=== PATIENT | female | born 1965 | race Caucasian/White ===

== ENCOUNTER 2022-12-29 10:13 | Emergency (ER) | payer BC, SELFPAY ==
[2022-12-29 10:19] VITALS: BP 122/72; PULSE 85; RESP 20; O2SAT 94; BMI 32.9
--- NOTE | 2022-12-29 10:42 | CRLHL7_ITS ---
For Patients: As a result of the Century Cures Act, medical imaging exams and procedure reports are released immediately into your electronic medical record. You may view this report before your referring provider. If you have questions, please contact your health care provider. INDICATION: Headache TECHNIQUE: CT head without contrast. COMPARISON: None. FINDINGS: CSF spaces: Parasagittal calcified lesion which is dural-based near the vertex measuring 13 millimeters (series 7, image 33). No significant mass effect. Brain parenchyma: The babin-white differentiation is normal. No sign of mass, hemorrhage, or midline shift. Skull base and calvarium: Mucosal thickening right maxillary sinus. The visualized orbits are grossly unremarkable. No skull fractures. IMPRESSION: 1. No intracranial bleed or mass effect. 2. Parasagittal extra-axial lesion with calcification measuring 13 millimeters, likely a meningioma. Please note that all CT scans at this facility use dose modulation, iterative reconstruction, and/or weight-based dosing when appropriate to reduce radiation dose to as low as reasonably achievable. Dictated by Demetris Dixon MD @ 12/29/2022 11:12:00 AM (Electronically Signed)
--- NOTE | 2022-12-29 10:45 | ED_ITS ---
HPI - General Adult General Time Seen by Provider: 10:45 Date Seen: 12/29/22 Chief complaint: Headache/Migraine Stated complaint: Headache, Nausea Time Seen by Provider: 12/29/22 10:27 Source: patient Mode of arrival: ambulatory Limitations: no limitations History of Present Illness HPI narrative: Patient is a 57 year white female who is pleasant and describing a headache. She brought she has a history of bitemporal type tension headaches. She has been told she has migraines in the past. She reports his headaches been for a couple of days, slow and insidious onset, seems similar but a little bit worse than normal. No nuchal rigidity, no fevers chills cough. Patient has a history of methamphetamine use in the past, denies using that now. She denies nuchal rigidity denies thunderclap headache, denies neurologic complaint to me. Normal strength and sensation are arms and legs. She reports she is drinking adequate fluid thanks Related Data Allergies Allergy/AdvReac Type Severity Reaction Status Date / Time Penicillins Allergy Verified 12/29/22 10:18 Review of Systems Status of ROS: Reports: 6 or more systems reviewed and unremarkable except as noted in History and below [facility] Social History Smoking Status: Current every day smoker What tobacco products do you use: cigarettes Smoking packs per day: 0.5 Smoking cigarettes per day: 10.0 Years smoked: 25 Smoking pack-years: 12.50 Second hand tobacco smoke exposure: Yes How often do you have a drink containing alcohol: monthly or less How many standard drinks containing alcohol do you have on a typical day: 1 or 2 How often do you have six or more drinks on one occasion: Never AUDIT-C Alcohol total score: 1 Non-prescribed substance use: denies use service: No Exam Narrative: Exam Narrative: Objective: Vital signs are unremarkable, the patient is alert or x3, no cyanosis talks in even unlabored sentences, does not appear in marked distress HEENT shows clear mouth well-hydrated, neck supple, chest clear, heart rhythm regular without murmur Abdomen benign soft Extremities are no edema Neurologic nonfocal upper extremities normal strength sensation Const: Vital Signs, click to edit/add: Vital Signs - 24 hr 12/29/22 10:19 Pulse Rate [Pulse Oximeter] 85 Respiratory Rate 20 Blood Pressure [Ri ght Upper Arm] 122/72 Pulse Oximetry 94 Oxygen Delivery Me thod Room Air Course Vital Signs Vital signs: Initial Vital Signs Temperature Source Temporal Artery Scan 12/29/22 10:19 Pulse Rate 85 12/29/22 10:19 Pulse Rhythm 12/29/22 10:19 Respiratory Rate 20 12/29/22 10:19 Blood Pressure 122/72 12/29/22 10:19 Blood Pressure Mean 88 12/29/22 10:19 Blood Pressure Position Supine 12/29/22 10:19 Pulse Oximetry 94 12/29/22 10:19 Oxygen Delivery Method 12/29/22 10:19 Vital Signs Pulse Rate 85 12/29/22 10:19 Respiratory Rate 20 12/29/22 10:19 Blood Pressure 122/72 12/29/22 10:19 Pulse Oximetry 94 12/29/22 10:19 Oxygen Delivery Method 12/29/22 10:19 Pulse Rate 85 12/29/22 10:19 Respiratory Rate 20 12/29/22 10:19 Blood Pressure 122/72 12/29/22 10:19 Pulse Oximetry 94 12/29/22 10:19 Oxygen Delivery Method 12/29/22 10:19 Medical Decision Making MDM Narrative Medical decision making narrative: 57 year white female with a headache history of headaches. At this point I think given she reports that is slightly worse I think I would get a CT of her head just because she has had a history of drug use in the past and I do not know she has fallen or had other injury I think it should be excluded. Will give her IV medications in the form of Toradol, Reglan, Benadryl. IV fluid. Disposition pending her CT results. Will also check a heme 4 and basic 7. Addendum: The patient has a negative CT scan of her head with exception of a 13 mm likely meningioma that could be followed up as an outpatient. Her CBC looks unremarkable, her pain is improved, rest fluids ox light activity, recheck with regular doctor within the next couple of days would be appropriate. Lab Data Labs: Lab Results 12/29/22 12/29/22 Range/Units 11:16 11:16 WBC 7.40 (4.50-11.00) K/uL RBC 4.60 (4.00-5.20) m/uL Hgb 13.6 (12.0-16.0) gm/dL Hct 42.0 (33.0-51.0) % MCV 91 (80-100) fL MCH 30 (26-34) pg MCHC 32 (32-36) gm/dL RDW Coeff of Kelsey 12.4 (11.5-15.5) % Plt Count 335 (140-440) K/uL Neut % (Auto) 47.1 (42.0-72.0) % Lymph % (Auto) 35.3 (20-44) % [place] % (Auto) 6.2 (0.0-11.0) % Eos % (Auto) 10.4 H (0.0-7.0) % Baso % (Auto) 0.9 (0.0-3.0) % Neut # (Auto) 3.48 (1.7-7.0) K/uL Lymph # (Auto) 2.61 (0.90-2.90) K/uL [place] # (Auto) 0.50 (0.00-0.90) K/UL Eos # (Auto) 0.80 H (0.00-0.50) K/uL Baso # (Auto) 0.07 (0.00-0.30) K/uL Sodium 139 (135-149) mmol/L Potassium 3.7 (3.6-5.1) mmol/L Chloride 109 (96-114) mmol/L Carbon Dioxide 25 (20-32) mmol/L BUN 15 (7-30) mg/dL Creatinine 0.7 (0.5-1.5) mg/dL Estimated Creat Clear 70.98 Estimated GFR 101 ml/min Glucose 106 (60-115) mg/dL Calcium 8.6 (8.4-10.6) mg/dL Discharge Plan Discharge Clinical Impression: Headache Patient Disposition: Home w/ Parent or Adult Condition: Improved Additional Instructions: Rest, light activity, need to recheck your CT scan result with your primary care doctor. It appears there was some calcium there that is likely benign finding but needs either an MRI or other follow-up. Rest, light activity today as mention drink lots of fluids, continue home medications. That you will need a ride home today, the medicines were given can make you sleepy, sleep is a good treatment for migrainous type headache. And would encourage you to sleep today, return to the ED as needed Activity Level: Light activity Discharge Diet: Regular Follow Up/Referrals: Machelle Villarreal MD [Primary Care Provider] - Stand Alone Forms: [employer] Info Instructions
[2022-12-29] MEDS: diphenhydrAMINE 50 MG/ML inj 25 MG IVP (11:18)
[2022-12-29] MEDS: KETOROLAC 30 MG/ML inj IVP (11:18)
[2022-12-29] MEDS: 0.9 % SODIUM CHLORIDE 1000 ml 1,000 ML 6000 ML IV (11:19)
[2022-12-29 11:27] LABS: Basophils Absolute Auto 0.07 K/uL (0.00-0.30); Basophils Percent Auto 0.9 % (0.0-3.0); Eosinophils Percent Auto 10.4 % (0.0-7.0); Hemoglobin* 13.6 gm/dL (12.0-16.0); Immature Granulocytes Abs Auto 0.01 K/uL (0.00-0.30); Immature Granulocytes Pct Auto 0.1 %; Lymphocytes Absolute Auto 2.61 K/uL (0.90-2.90); Lymphocytes Percent Auto 35.3 % (20-44); Mean Corpuscular HGB Conc 32 gm/dL (32-36); Mean Corpuscular Hemoglobin 30 pg (26-34); Mean Corpuscular Volume 91 fL (80-100); Monocytes Percent Auto 6.2 % (0.0-11.0); Neutrophils Absolute Auto 3.48 K/uL (1.7-7.0); Neutrophils Percent Auto 47.1 % (42.0-72.0); Platelet Count* 335 K/uL (140-440); RDW Coefficient of Variation % 12.4 % (11.5-15.5)
[2022-12-29 11:29] LABS: Slide Review Reflex No
[2022-12-29 11:40] LABS: Chloride* 109 mmol/L (96-114); Sodium* 139 mmol/L (135-149)
[2022-12-29 11:41] LABS: Potassium* 3.7 mmol/L (3.6-5.1)
[2022-12-29 11:43] LABS: Carbon Dioxide* 25 mmol/L (20-32); Creatinine* 0.7 mg/dL (0.5-1.5); Est. Creatinine Clearance* 70.98; Estimated Glomerular Filt Rate 101 ml/min
[2022-12-29 11:44] LABS: Blood Urea Nitrogen* 15 mg/dL (7-30); Calcium* 8.6 mg/dL (8.4-10.6); Glucose* 106 mg/dL (60-115)
[2022-12-29] MEDS: METOCLOPRAMIDE HCL 10 MG in 0.9 % SODIUM CHLORIDE 100 ml 100 ML 306 MG IV (11:46)
--- NOTE | 2022-12-29 12:43 | ED.NURSE ---
CT images pushed to [facility] where patient sees a neurologist.
== END 2022-12-29 13:07 | disposition home or self-care (01) ==
PROVIDERS: Emergency Provider Family Medicine; PCP Family Medicine
DX: R51.9 Headache, unspecified (principal)
CPT/HCPCS: 36415; 70450; 80048; 85025; 96374; 96375; 99284; J1200; J1885; J2765; J7030

== ENCOUNTER 2023-03-04 17:44 | Emergency (ER) | payer BC, SELFPAY ==
[2023-03-04 17:50] VITALS: BP 155/89; PULSE 102; RESP 20; TEMP 35.9; O2SAT 96; BMI 32.9
--- NOTE | 2023-03-04 18:21 | CRLHL7_ITS ---
For Patients: As a result of the Century Cures Act, medical imaging exams and procedure reports are released immediately into your electronic medical record. You may view this report before your referring provider. If you have questions, please contact your health care provider. INDICATION: LUQ PAIN CT ABDOMEN AND PELVIS WITH CONTRAST TECHNIQUE: Multidetector CT imaging was performed through the abdomen and pelvis following intravenous contrast administration using 88 mL Isovue 370. Coronal and sagittal reconstructions were generated. COMPARISON: None. FINDINGS: Lower chest: Lung bases are clear aside from a noncalcified 5 millimeter nodule in the left lower lobe on image 13 of series 3; consider follow-up as per Fleischner Society guidelines. Liver: Within normal limits. Gallbladder and bile ducts: Partially contracted gallbladder. No gallbladder wall thickening or calcified gallstones. No biliary dilation identified. Pancreas: Unremarkable. Spleen: Normal. Adrenals: No nodules or masses. Kidneys, ureters, and urinary bladder: No renal masses or hydronephrosis. No bladder mass or definite wall thickening. Gastrointestinal tract: Normal caliber small bowel without wall thickening or obstruction. The appendix is normal. Multiple colon diverticula, most numerous in the distal descending colon and sigmoid, without evidence of diverticulitis. Vascular structures: Normal caliber abdominal aorta with mild atherosclerotic calcifications. Peritoneum: No free air, abscess, or significant free fluid. Lymph nodes: No pathologically enlarged nodes identified. Reproductive organs: No pelvic masses. Bones: Moderate degenerative changes in the lower lumbar facet joints. Grade 1 spondylolisthesis at L5-S1. IMPRESSION: 1. No acute abnormality identified. No cause for the patient`s symptoms is demonstrated. 2. Nonacute findings as detailed above. DANE BRIDGES MD [employer] Dictated by Agus Bridges MD @ 03/04/2023 6:59:52 PM Please note that all CT scans at this facility use dose modulation, iterative reconstruction, and/or weight-based dosing when appropriate to reduce radiation dose to as low as reasonably achievable. Dictated by: Agus Bridges MD @ 03/04/2023 19:01:44 (Electronically Signed)
--- NOTE | 2023-03-04 18:22 | ED_ITS ---
HPI - Abdominal Pain General Chief Complaint: Abdominal Pain Stated Complaint: Left side pain/hip pain Time Seen by Provider: 03/04/23 17:51 History of Present Illness HPI narrative: This 58-year-old female comes in reporting left upper quadrant abdominal pain that is been present for the past 5 days. She states that this pain is keeping her awake at night. She states that it is a constant pain. The pain is worse with certain movements. She denies having symptoms of dysuria. She has not had any fevers. She has had a couple episodes of diarrhea but no blood in the toilet. She does not report any personal history of kidney stone. She denies having any left flank pain or pain into the groin. Related Data Home Medications Medication Instructions Recorded Confirmed buspirone 5 mg tablet 5 mg PO BID 03/04/23 03/04/23 Previous Rx's Medication Instructions Recorded ketorolac 10 mg tablet 10 mg PO Q8H 5 days #15 tabs 03/04/23 Allergies Allergy/AdvReac Type Severity Reaction Status Date / Time Penicillins Allergy Verified 12/29/22 10:18 Review of Systems Status of ROS Reports: 10 or more systems reviewed and unremarkable except as noted in History and below Narrative Constitutional: No fevers, no weight gain or loss. Eyes: No discharge. No vision changes. HENT: No congestion, no sore throat, no ear pain. Cardiovascular: No chest pain, no palpitations. Respiratory: No shortness of breath, no wheezes, no cough. Gastrointestinal: Left upper quadrant abdominal pain as described above. Genitourinary: No dysuria, no hematuria. Musculoskeletal: Normal range of motion. Skin: No rashes, no pruritis. Neurological: No dizziness, weakness, sensory change, speech change. Endo/Heme/Allergies: No bruising or bleeding. No polydipsia. Pysch: no suicidality, no anxiety, no insomnia. All other systems reviewed and are negative. [facility] Social History Smoking Status: Current every day smoker What tobacco products do you use: cigarettes Smoking packs per day: 0.5 Smoking cigarettes per day: 10.0 Years smoked: 25 Smoking pack-years: 12.50 Second hand tobacco smoke exposure: Yes How often do you have a drink containing alcohol: never How many standard drinks containing alcohol do you have on a typical day: 1 or 2 How often do you have six or more drinks on one occasion: Never AUDIT-C Alcohol total score: 0 Non-prescribed substance use: denies use service: No Exam Narrative: Exam Narrative: Constitutional: Well-developed, well-nourished, no acute distress. HEENT: Normocephalic, atraumatic. Neck: Normal range of motion. Nontender. Supple. Heart: Regular. No murmurs. Normal rate. Intact distal pulses. Lungs: Clear to auscultation. No chest discomfort. No wheezes, rhonchi, or rales. Abdomen: Normal bowel sounds. Tenderness in left upper quadrant. No obvious rebound tenderness. No tenderness when percussing over the left flank region. Genitalia: Deferred. Back: No midline tenderness. Normal range of motion. Extremities: Normal range of motion. No injury. Skin: Intact. No rash. Warm. No erythema or pallor. Neurologic: No altered sensation. No weakness. Alert and oriented. Psychiatric: No suicidality. No anxiety or depression. No insomnia. Nursing notes and vitals signs are reviewed. Const: Vital Signs, click to edit/add: Vital Signs - 24 hr 03/04/23 17:50 Temperature 96.6 F L Pulse Rate [Pulse Oximeter] 102 H Respiratory Rate 20 Blood Pressure [Ri ght Upper Arm] 155/89 H Pulse Oximetry 96 Oxygen Delivery Me thod Room Air Course Vital Signs Vital signs: Initial Vital Signs Temperature 96.6 F L 03/04/23 17:50 Temperature Source Temporal Artery Scan 03/04/23 17:50 Pulse Rate 102 H 03/04/23 17:50 Respiratory Rate 20 03/04/23 17:50 Blood Pressure 155/89 H 03/04/23 17:50 Blood Pressure Mean 111 03/04/23 17:50 Blood Pressure Position Sitting 03/04/23 17:50 Pulse Oximetry 96 03/04/23 17:50 Oxygen Delivery Method Room Air 03/04/23 17:50 Vital Signs Temperature 96.6 F L 03/04/23 17:50 Pulse Rate 102 H 03/04/23 17:50 Respiratory Rate 20 03/04/23 17:50 Blood Pressure 155/89 H 03/04/23 17:50 Pulse Oximetry 96 03/04/23 17:50 Oxygen Delivery Method Room Air 03/04/23 17:50 Temperature 96.6 F L 03/04/23 17:50 Pulse Rate 102 H 03/04/23 17:50 Respiratory Rate 20 03/04/23 17:50 Blood Pressure 155/89 H 03/04/23 17:50 Pulse Oximetry 96 03/04/23 17:50 Oxygen Delivery Method Room Air 03/04/23 17:50 MDM - Abdominal Pain MDM Narrative Medical decision making narrative: This patient comes in reporting pain in the left upper quadrant for the past 5 days. An IV was established where she received 30 mg of Toradol toward the end of her visit. Lab results returned with normal findings. Additionally CT imaging of the abdomen with contrast shows no findings to explain her pain. There is some diverticulosis but no diverticulitis. The patient was reassured with these findings and is okay to return home. She did receive a prescription for Toradol. Lab Data Labs: Lab Results 03/04/23 Range/Units 18:35 WBC 7.88 (4.50-11.00) K/uL RBC 4.74 (4.00-5.20) m/uL Hgb 13.8 (12.0-16.0) gm/dL Hct 42.9 (33.0-51.0) % MCV 91 (80-100) fL MCH 29 (26-34) pg MCHC 32 (32-36) gm/dL RDW Coeff of [place]sey 12.9 (11.5-15.5) % Plt Count 361 (140-440) K/uL Neut % (Auto) 58.1 (42.0-72.0) % Lymph % (Auto) 27.0 (20-44) % [place] % (Auto) 6.2 (0.0-11.0) % Eos % (Auto) 8.0 H (0.0-7.0) % Baso % (Auto) 0.6 (0.0-3.0) % Neut # (Auto) 4.57 (1.7-7.0) K/uL Lymph # (Auto) 2.13 (0.90-2.90) K/uL [place] # (Auto) 0.50 (0.00-0.90) K/UL Eos # (Auto) 0.60 H (0.00-0.50) K/uL Baso # (Auto) 0.05 (0.00-0.30) K/uL Sodium 138 (135-149) mmol/L Potassium 4.5 (3.6-5.1) mmol/L Chloride 103 (96-114) mmol/L Carbon Dioxide 32 (20-32) mmol/L BUN 17 (7-30) mg/dL Creatinine 0.7 (0.5-1.5) mg/dL Estimated Creat Clear 70.13 Estimated GFR 101 ml/min Glucose 106 (60-115) mg/dL Calcium 9.2 (8.4-10.6) mg/dL Total Bilirubin 0.2 (0.1-1.5) mg/dL Direct Bilirubin 0.2 (0.0-0.5) mg/dL AST 22 (12-35) U/L ALT 23 (4-35) U/L Alkaline Phosphatase 126 (40-150) U/L Total Protein 7.2 (6.0-8.3) g/dL Albumin 4.1 (3.3-5.0) g/dL Lipase 106 (23-300) U/L Imaging Data CT scan - abdomen: Radiologist's impression: 1. No acute abnormality identified. No cause for the patient`s symptoms is demonstrated. 2. Nonacute findings as detailed above. Discharge Plan Discharge Clinical Impression: Abdominal pain Patient Disposition: Home, Self-Care Condition: Stable Additional Instructions: Take medication as needed and indicated. Follow up with MD or return if worsening. Prescriptions: New ketorolac 10 mg tablet 10 mg PO Q8H 5 Days Qty: 15 0RF No Action buspirone 5 mg tablet 5 mg PO BID Follow Up/Referrals: Machelle Villarreal MD [Primary Care Provider] - Stand Alone Forms: [employer] Info Instructions
[2023-03-04 18:43] LABS: Basophils Absolute Auto 0.05 K/uL (0.00-0.30); Basophils Percent Auto 0.6 % (0.0-3.0); Hematocrit 42.9 % (33.0-51.0); Hemoglobin* 13.8 gm/dL (12.0-16.0); Immature Granulocytes Abs Auto 0.01 K/uL (0.00-0.30); Immature Granulocytes Pct Auto 0.1 %; Lymphocytes Absolute Auto 2.13 K/uL (0.90-2.90); Mean Corpuscular HGB Conc 32 gm/dL (32-36); Mean Corpuscular Hemoglobin 29 pg (26-34); Mean Corpuscular Volume 91 fL (80-100); Monocytes Percent Auto 6.2 % (0.0-11.0); Neutrophils Absolute Auto 4.57 K/uL (1.7-7.0); Neutrophils Percent Auto 58.1 % (42.0-72.0); Platelet Count* 361 K/uL (140-440); RDW Coefficient of Variation % 12.9 % (11.5-15.5); Red Blood Count 4.74 m/uL (4.00-5.20); White Blood Count* 7.88 K/uL (4.50-11.00)
[2023-03-04 18:45] LABS: Slide Review Reflex No
[2023-03-04 18:55] LABS: Albumin* 4.1 g/dL (3.3-5.0)
[2023-03-04 18:56] LABS: Chloride* 103 mmol/L (96-114); Potassium* 4.5 mmol/L (3.6-5.1); Sodium* 138 mmol/L (135-149)
[2023-03-04 18:58] LABS: Bilirubin Direct* 0.2 mg/dL (0.0-0.5); Bilirubin Total* 0.2 mg/dL (0.1-1.5); Carbon Dioxide* 32 mmol/L (20-32); Creatinine* 0.7 mg/dL (0.5-1.5); Est. Creatinine Clearance* 70.13; Estimated Glomerular Filt Rate 101 ml/min; Total Protein* 7.2 g/dL (6.0-8.3)
[2023-03-04 18:59] LABS: Alanine Aminotransferase* 23 U/L (4-35); Alkaline Phosphatase* 126 U/L (40-150); Aspartate Amino Transferase* 22 U/L (12-35); Blood Urea Nitrogen* 17 mg/dL (7-30); Calcium* 9.2 mg/dL (8.4-10.6); Glucose* 106 mg/dL (60-115); Lipase* 106 U/L (23-300)
[2023-03-04 19:00] VITALS: BP 139/107; PULSE 85; RESP 16; O2SAT 97
[2023-03-04] MEDS: KETOROLAC 30 MG/ML inj IVP (19:43)
== END 2023-03-04 19:51 | disposition home or self-care (01) ==
PROVIDERS: Emergency Provider Emergency Medicine Emergency Medical Services; PCP Family Medicine
DX: R10.9 Unspecified abdominal pain (principal)
CPT/HCPCS: 36415; 74177; 80048; 80076; 83690; 85025; 96374; 99284; J1885; Q9967

== ENCOUNTER 2023-05-23 16:50 | Emergency (ER) | payer BC, SELFPAY ==
[2023-05-23] VITALS (9 sets, daily range): BP systolic 121–132; BP diastolic 74–85; PULSE 68–90; RESP 20; TEMP 37.1; O2SAT 93–97; BMI 32.9
--- NOTE | 2023-05-23 17:39 | ED.GENADULT ---
HPI - General Adult General Date Seen: 05/23/23 Chief complaint: Unspecified Complaint, Adult Stated complaint: Dehydration Time Seen by Provider: 05/23/23 17:19 Source: patient Mode of arrival: ambulatory Limitations: no limitations History of Present Illness HPI narrative: Patient is a 58-year-old woman here for evaluation of diarrhea for the past week. Stools are nonbloody, watery. She has also had headaches and fatigue. She has not had any nausea or vomiting. She denies recent antibiotics, non city water, suspect food. She called to make an appointment in the clinic and they told her to come to the ER for possible dehydration. No ill contacts. No abdominal pain. No fevers or chills. No urinary symptoms. Related Data Home Medications Medication Instructions Recorded Confirmed buspirone 5 mg tablet 5 mg PO BID 03/04/23 03/04/23 Previous Rx's Medication Instructions Recorded ketorolac 10 mg tablet 10 mg PO Q8H 5 days #15 tabs 03/04/23 Allergies Allergy/AdvReac Type Severity Reaction Status Date / Time cephalexin [From Keflex] AdvReac Severe Rash Verified 05/23/23 17:10 Penicillins AdvReac Severe Rash Verified 05/23/23 17:10 Review of Systems Status of ROS: Reports: 10 or more systems reviewed and unremarkable except as noted in History and below [facility] Social History Smoking Status: Current every day smoker What tobacco products do you use: cigarettes Smoking packs per day: 0.5 Smoking cigarettes per day: 10.0 Years smoked: 25 Smoking pack-years: 12.50 Second hand tobacco smoke exposure: Yes How often do you have a drink containing alcohol: never How many standard drinks containing alcohol do you have on a typical day: 1 or 2 How often do you have six or more drinks on one occasion: Never AUDIT-C Alcohol total score: 0 Non-prescribed substance use: denies use service: No Exam Narrative: Exam Narrative: Vital signs as noted above. In general, an alert, well-appearing patient. Head: Normocephalic, atraumatic. Eyes: Pupils are equal reactive. Extraocular movements are full. Conjunctivae are normal. ENT: Mucous membranes are moist. Throat is normal. Neck: Supple without lymphadenopathy. Heart: Regular rate and rhythm. No murmur or rub. Lungs: Clear bilaterally. No increased work of breathing, crackles or wheezes. Abdomen: Soft and nontender. No organomegaly. Extremities: Well perfused. No edema. No calf tenderness. Pulses intact. Neurologic: Patient is alert and oriented to person and place. Speech is fluent. Face is symmetric. Moves all extremities equally. Affect: Normal. Skin: Warm and dry. Well perfused. Const: Vital Signs, click to edit/add: Vital Signs - 24 hr 05/23/23 17:08 05/23/23 18:02 05/23/23 18:03 Temperature 98.8 F Pulse Rate 70 72 Pulse Rate [Right Pulse Oximeter] 90 Respiratory Rate 20 Blood Pressure 121/74 Blood Pressure [Le ft Upper Arm] 132/85 Pulse Oximetry 97 97 95 Oxygen Delivery Me thod Room Air 05/23/23 18:15 05/23/23 18:30 05/23/23 18:45 Temperature Pulse Rate 69 74 76 Pulse Rate [Right Pulse Oximeter] Respiratory Rate Blood Pressure Blood Pressure [Le ft Upper Arm] Pulse Oximetry 94 93 93 Oxygen Delivery Me thod 05/23/23 19:00 05/23/23 19:02 05/23/23 19:15 Temperature Pulse Rate 68 74 80 Pulse Rate [Right Pulse Oximeter] Respiratory Rate Blood Pressure 124/81 Blood Pressure [Le ft Upper Arm] Pulse Oximetry 95 94 97 Oxygen Delivery Me thod Course Course Hospital Course: We placed an IV here, gave a L of normal saline. Labs including a CBC, metabolic panel, LFTs, lactate, CRP are all entirely normal. Urinalysis is negative, no ketones, no red or white cells. Patient presents with nonspecific diarrhea without evidence of dysentery, colitis, or red flag symptoms. She did not have any diarrhea while here. She is feeling better, she would like to go as she says her daughter has limited time to bring her home. Would recommend a trial of Imodium given that she does not have any significant abdominal pain, fever, bloody stools etcetera. If not improving over the next few days to week, primary care follow-up in stool studies could be considered. I had ordered a C diff that she did not have a bowel movement while here. Return at any time for new symptoms such as significant abdominal pain, bloody stools, fever etcetera. Vital Signs Vital signs: Initial Vital Signs Temperature 98.8 F 05/23/23 17:08 Temperature Source Temporal Artery Scan 05/23/23 17:08 Pulse Rate 90 05/23/23 17:08 Pulse Rhythm Regular 05/23/23 17:08 Pulse Strength 3+ Normal 05/23/23 17:08 Respiratory Rate 20 05/23/23 17:08 Blood Pressure 132/85 05/23/23 17:08 Blood Pressure Mean 100 05/23/23 17:08 Blood Pressure Position Sitting 05/23/23 17:08 Pulse Oximetry 97 05/23/23 17:08 Oxygen Delivery Method Room Air 05/23/23 17:08 Vital Signs Temperature 98.8 F 05/23/23 17:08 Pulse Rate 90 05/23/23 17:08 Respiratory Rate 20 05/23/23 17:08 Blood Pressure 132/85 05/23/23 17:08 Pulse Oximetry 97 05/23/23 17:08 Oxygen Delivery Method Room Air 05/23/23 17:08 Temperature 98.8 F 05/23/23 17:08 Pulse Rate 80 05/23/23 19:15 Respiratory Rate 20 05/23/23 17:08 Blood Pressure 124/81 05/23/23 19:02 Pulse Oximetry 97 05/23/23 19:15 Oxygen Delivery Method Room Air 05/23/23 17:08 Medical Decision Making Lab Data Labs: Lab Results 05/23/23 05/23/23 05/23/23 Range/Units 17:55 17:56 19:20 WBC 7.46 (4.50-11.00) K/uL RBC 4.71 (4.00-5.20) m/uL Hgb 13.9 (12.0-16.0) gm/dL Hct 43.2 (33.0-51.0) % MCV 92 (80-100) fL MCH 30 (26-34) pg MCHC 32 (32-36) gm/dL RDW Coeff of Kelsey 12.6 (11.5-15.5) % Plt Count 367 (140-440) K/uL Neut % (Auto) 51.6 (42.0-72.0) % Lymph % (Auto) 31.5 (20-44) % [place] % (Auto) 6.8 (0.0-11.0) % Eos % (Auto) 9.2 H (0.0-7.0) % Baso % (Auto) 0.8 (0.0-3.0) % Neut # (Auto) 3.84 (1.7-7.0) K/uL Lymph # (Auto) 2.35 (0.90-2.90) K/uL [place] # (Auto) 0.50 (0.00-0.90) K/UL Eos # (Auto) 0.70 H (0.00-0.50) K/uL Baso # (Auto) 0.06 (0.00-0.30) K/uL Sodium 138 (135-149) mmol/L Potassium 4.1 (3.6-5.1) mmol/L Chloride 103 (96-114) mmol/L Carbon Dioxide 28 (20-32) mmol/L BUN 16 (7-30) mg/dL Creatinine 0.6 (0.5-1.5) mg/dL Estimated Creat Clear 81.82 Estimated GFR 105 ml/min Glucose 107 (60-115) mg/dL Lactate 1.6 (0.5-1.9) mmol/L Calcium 8.7 (8.4-10.6) mg/dL Total Bilirubin 0.2 (0.1-1.5) mg/dL Direct Bilirubin 0.0 (0.0-0.5) mg/dL AST 22 (12-35) U/L ALT 23 (4-35) U/L Alkaline Phosphatase 118 (40-150) U/L C-Reactive Protein 0.8 (0.5-1.0) mg/dL Total Protein 6.9 (6.0-8.3) g/dL Albumin 4.1 (3.3-5.0) g/dL Urine Color Yellow (Yellow) Urine Appearance Clear (Clear) Urine pH 5.5 (5.0-8.5) Ur Specific [place] 1.015 (1.000-1.030) Urine Protein Negative (Negative) Urine Glucose (UA) Negative (Negative) Urine Ketones Negative (Negative) Urine Blood Negative (Negative) Urine Nitrite Negative (Negative) Urine Bilirubin Negative (Negative) Urine Urobilinogen 0.2 (0.2-1.0) Ur Leukocyte Esterase Negative (Negative) Urine RBC 0-2 (0-2) Urine WBC 0-2 (0-5) Ur Squamous Epith Cells Few (None-Few) Urine Bacteria None (None) Discharge Plan Discharge Clinical Impression: Diarrhea Patient Disposition: Home, Self-Care Condition: Improved Instructions: Acute Diarrhea (ED) Additional Instructions: Okay to use a couple of doses of Imodium if needed for persistent diarrhea. If you are not improved over the next several days to week, you should be seen again and stool studies may be done at that time. If at any time you have severe abdominal pain, high fevers, bloody stools, return to the emergency department for re-evaluation. Your labs today are all reassuring. The urinalysis is not completed yet. We will call you if any significant findings arise. Prescriptions: No Action buspirone 5 mg tablet 5 mg PO BID ketorolac 10 mg tablet 10 mg PO Q8H 5 Days Qty: 15 0RF Follow Up/Referrals: Machelle Villarreal MD [Primary Care Provider] - Stand Alone Forms: [employer] Info Instructions
[2023-05-23] MEDS: 0.9 % SODIUM CHLORIDE 1000 ml 1,000 ML IV (17:45)
[2023-05-23] MEDS: KETOROLAC 15 MG/ML inj IVP (17:45)
[2023-05-23 18:06] LABS: Lactate* 1.6 mmol/L (0.5-1.9)
[2023-05-23 18:12] LABS: Basophils Absolute Auto 0.06 K/uL (0.00-0.30); Basophils Percent Auto 0.8 % (0.0-3.0); Eosinophils Percent Auto 9.2 % (0.0-7.0); Hematocrit 43.2 % (33.0-51.0); Hemoglobin* 13.9 gm/dL (12.0-16.0); Immature Granulocytes Abs Auto 0.01 K/uL (0.00-0.30); Immature Granulocytes Pct Auto 0.1 %; Lymphocytes Absolute Auto 2.35 K/uL (0.90-2.90); Lymphocytes Percent Auto 31.5 % (20-44); Mean Corpuscular HGB Conc 32 gm/dL (32-36); Mean Corpuscular Hemoglobin 30 pg (26-34); Mean Corpuscular Volume 92 fL (80-100); Monocytes Percent Auto 6.8 % (0.0-11.0); Neutrophils Absolute Auto 3.84 K/uL (1.7-7.0); Neutrophils Percent Auto 51.6 % (42.0-72.0); Platelet Count* 367 K/uL (140-440); RDW Coefficient of Variation % 12.6 % (11.5-15.5); Red Blood Count 4.71 m/uL (4.00-5.20); White Blood Count* 7.46 K/uL (4.50-11.00)
[2023-05-23 18:22] LABS: Slide Review Reflex No
[2023-05-23 18:24] LABS: Albumin* 4.1 g/dL (3.3-5.0); Chloride* 103 mmol/L (96-114)
[2023-05-23 18:25] LABS: Potassium* 4.1 mmol/L (3.6-5.1); Sodium* 138 mmol/L (135-149)
[2023-05-23 18:27] LABS: Creatinine* 0.6 mg/dL (0.5-1.5); Est. Creatinine Clearance* 81.82; Estimated Glomerular Filt Rate 105 ml/min
[2023-05-23 18:28] LABS: Alanine Aminotransferase* 23 U/L (4-35); Alkaline Phosphatase* 118 U/L (40-150); Aspartate Amino Transferase* 22 U/L (12-35); Bilirubin Total* 0.2 mg/dL (0.1-1.5); Blood Urea Nitrogen* 16 mg/dL (7-30); Calcium* 8.7 mg/dL (8.4-10.6); Carbon Dioxide* 28 mmol/L (20-32); Glucose* 107 mg/dL (60-115); Total Protein* 6.9 g/dL (6.0-8.3)
[2023-05-23 18:30] LABS: C Reactive Protein* 0.8 mg/dL (0.5-1.0)
[2023-05-23 19:30] LABS: Appearance Urine Clear (Clear); Bilirubin Urine Negative (Negative); Blood Urine Negative (Negative); Color Urine Yellow (Yellow); Glucose Urine Negative (Negative); Ketones Urine Negative (Negative); Leukocyte Esterase Urine Negative (Negative); Nitrite Urine Negative (Negative); Protein Urine Negative (Negative); Specific Gravity Urine 1.015 (1.000-1.030); Urobilinogen Urine 0.2 (0.2-1.0); pH Urine 5.5 (5.0-8.5)
[2023-05-23 19:41] LABS: RBC Urine 0-2 (0-2); Squamous Epithelial Cell Urine Few (None-Few); WBC Urine 0-2 (0-5)
== END 2023-05-23 19:40 | disposition home or self-care (01) ==
PROVIDERS: Emergency Provider Emergency Medicine; PCP Family Medicine
DX: R19.7 Diarrhea, unspecified (principal)
CPT/HCPCS: 36415; 80048; 80076; 81001; 83605; 85025; 86140; 87493; 96361; 96374; 99284; J1885; J7030

== ENCOUNTER 2024-07-15 21:14 | Emergency (ER) | payer BC, SELFPAY ==
[2024-07-15 21:20] VITALS: BP 149/91; PULSE 97; RESP 16; TEMP 35.7; O2SAT 98; BMI 32.9
--- NOTE | 2024-07-15 21:58 | ED.GENADULT ---
HPI - General Adult General Date Seen: 07/15/24 Chief complaint: Unspecified Complaint, Adult Stated complaint: poss allergic reaction/hives over body Time Seen by Provider: 07/15/24 21:58 History of Present Illness HPI narrative: 59-year-old female with a past medical history of anxiety/depression, migraine headaches, lichen sclerosis, hip pains, presenting to the ER for evaluation of an injury high be rash all over body. It has been present there for about a week. She denies any new allergen exposures such as new soaps, detergent, or medications. She did buy a new mattress cover which she bought off [employer] about a week ago. For about the past week she has noted itchy bumps on the skin initially of her arms, now her legs, also a few bumps on her abdomen below her breasts. So a few bumps also on her low back. She tried taking zjxi-pae-tqwuuty antihistamine such as Benadryl but did not find them effective. Because they are very itchy she came here to the ER tonight. She has been sharing her mattress cover with her boyfriend, who does not have any associated bumps. She is not having any intraoral lesions. No throat swelling or voice change. No shortness of breath. No abdominal pain. No dizziness or lightheadedness. Related Data Home Medications ?Medication ?Instructions ?Recorded ?Confirmed buspirone 5 mg tablet 5 mg PO BID 03/04/23 10/21/23 Previous Rx's ?Medication ?Instructions ?Recorded ketorolac 10 mg tablet 10 mg PO Q8H 5 days #15 tabs 03/04/23 clobetasol 0.05 % topical ointment 1 applic topical QDAY #30 grams 10/21/23 cetirizine 10 mg tablet (Zyrtec) 10 mg PO DAILY PRN allergy 07/15/24 symptoms #7 tabs hydroxyzine HCl 25 mg tablet 25 mg PO TID PRN #20 tabs 07/15/24 prednisone 20 mg tablet 40 mg (2 x 20 mg) PO DAILY #10 tabs 07/15/24 Allergies Allergy/AdvReac Type Severity Reaction Status Date / Time Penicillins AdvReac Severe Rash Verified 07/15/24 21:23 cephalexin [From Keflex] AdvReac Intermediate Rash Verified 07/15/24 21:23 [facility] Medical History History of alcohol abuse ?F10.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, in remission (ICD-10) History of methamphetamine use ?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 use, unspecified, in remission (ICD-10) Surgical History (Updated 10/18/23 @ 09:04 by Tammy Patten) History of 2 sections ?Z98.891 - History of uterine scar from previous surgery (ICD-10) History of tubal ligation ?Z98.51 - Tubal ligation status (ICD-10) Social History Smoking Status: Current every day smoker What tobacco products do you use: cigarettes Smoking packs per day: 0.5 Smoking cigarettes per day: 10.0 Years smoked: 25 Smoking pack-years: 12.50 Second hand tobacco smoke exposure: Yes How often do you have a drink containing alcohol: never How many standard drinks containing alcohol do you have on a typical day: 1 or 2 How often do you have six or more drinks on one occasion: Never AUDIT-C Alcohol total score: 0 Non-prescribed substance use: denies use service: No Exam Narrative: Exam Narrative: Constitutional: Appears well-developed and well-nourished. Alert. Conversant. Non toxic. HENT: Head: Atraumatic. Nose: Nose normal. Mouth/Throat: Oral mucosa is clear and moist. no trismus. Pharynx normal. Tonsils symmetric. No tonsillar enlargement, erythema, or exudate. Airway patent. No stridor. No trismus. Eyes: Conjunctivae normal. EOM normal. Pupils equal, round, and reactive to light. No scleral icterus. Neck: Normal range of motion. Neck supple. No tracheal deviation present. Cardiovascular: Normal rate, regular rhythm. No gallop. No friction rub. No murmur heard. Symmetric radial artery pulses Pulmonary/Chest: Effort normal. No stridor. No respiratory distress. No wheezes. No rales. No rhonchi . Musculoskeletal: RUE: Normal range of motion. No tenderness. No deformity LUE: Normal range of motion. No tenderness. No deformity RLE: Normal range of motion. No edema. No tenderness. No deformity LLE: Normal range of motion. No edema. No tenderness. No deformity Neurological: Alert and oriented to person, place, and time. Normal strength. CN II-VII intact. No sensory deficit. GCS eye subscore is 4. GCS verbal subscore is 5. GCS motor subscore is 6. Normal coordination Skin: Patient has scattered pruritic slightly raised erythematous papules typically 5-7 mm in diameter, many of which have been de roofed by excoriation or possibly small vesicles that have broken open. No confluent hives or erythema. Skin is warm and dry. No rash noted. No pallor. Normal capillary refill. Psychiatric: Normal mood. Normal affect. Const: Vital Signs, click to edit/add: Vital Signs - 24 hr 07/15/24 21:20 Temperature 96.3 F L Pulse Rate [Right Pulse Oximeter] 97 Respiratory Rate 16 Blood Pressure [Ri ght Upper Arm] 149/91 H Pulse Oximetry 98 Oxygen Delivery Me thod Room Air Course Vital Signs Vital signs: Initial Vital Signs Temperature 96.3 F L 07/15/24 21:20 Temperature Source Temporal Artery Scan 07/15/24 21:20 Pulse Rate 97 07/15/24 21:20 Pulse Rhythm Regular 07/15/24 21:20 Pulse Strength 3+ Normal 07/15/24 21:20 Respiratory Rate 16 07/15/24 21:20 Blood Pressure 149/91 H 07/15/24 21:20 Blood Pressure Mean 110 H 07/15/24 21:20 Blood Pressure Position Sitting 07/15/24 21:20 Pulse Oximetry 98 07/15/24 21:20 Oxygen Delivery Method Room Air 07/15/24 21:20 Vital Signs Temperature 96.3 F L 07/15/24 21:20 Pulse Rate 97 07/15/24 21:20 Respiratory Rate 16 07/15/24 21:20 Blood Pressure 149/91 H 07/15/24 21:20 Pulse Oximetry 98 07/15/24 21:20 Oxygen Delivery Method Room Air 07/15/24 21:20 Temperature 96.3 F L 07/15/24 21:20 Pulse Rate 97 07/15/24 21:20 Respiratory Rate 16 07/15/24 21:20 Blood Pressure 149/91 H 07/15/24 21:20 Pulse Oximetry 98 07/15/24 21:20 Oxygen Delivery Method Room Air 07/15/24 21:20 Medications Administered Medications: Discontinued Medications Generic Name Dose Route Start Last Admin Trade Name Miracle PRN Reason Stop Dose Admin Hydroxyzine Pamoate 25 mg 07/15/24 22:05 07/15/24 22:10 Hydroxyzine Pamoate 25 Mg Capsule PO 07/15/24 22:06 25 mg ONCE ONE Administration Prednisone 40 mg 07/15/24 22:05 07/15/24 22:11 Prednisone 20 Mg Tablet PO 07/15/24 22:06 40 mg ONCE ONE Administration Medical Decision Making MDM Narrative Medical decision making narrative: This patient presents for evaluation of a pruritic slightly raised rash with multiple individual bumps on her upper extremities, lower extremities, anterior abdomen and low back. Signs and symptoms could be consistent with allergic reaction. No airway involvement, bronchospasm, GI symptoms, hypotension, or other sign of anaphylaxis. Symptoms have been present for over a week and are not really progressing rapidly, but have become so bothersome the patient is not able to sleep tonight. Patient was treated here with medications as noted above. Differential is broad. Consider allergic reaction although she has no known new allergen or medication or food. She did get a new mattress cover that she bought from [employer]. Consider possible bedbugs, however her boyfriend does not have any lesions and has been sleeping on the same mattress cover. Will treat with steroids and antihistamines. Prescriptions for prednisone provided. Prescription for hydroxyzine which she can use at night (reviewed that cause drowsiness and sedation and she should not drive) and cetirizine that she can use during the day. Potential for progress reaction was discussed. Development of anaphylactic symptoms were discussed with patient and they were instructed to return to the ER immediately or call 911 should these symptoms occur. Given the chronology, lack of respiratory difficulty and no oral or pharyngeal swelling, would not admit at this time for anaphylaxis. There is no signs of anaphylactic shock. Discharge Plan Discharge Clinical Impression: Hives Patient Disposition: Home, Self-Care Condition: Stable Instructions: Urticaria (ED) Additional Instructions: As we discussed, please come back to the ER if you have worsening hives, trouble breathing, voice changes or swelling in her airway, or if you have any problems. At this point of we do not know for sure what is causing your rash. Please wash your mattress in sheets and all of your bedding in the washer tonight and then dry it on high heat. This would kill any bedbugs if they are present in your new mattress cover. The use the uqtapmtcsitlsj-[id number]-axrcu 6 hours as needed for itching. Be careful with hydroxy because it can cause drowsiness. You can use sdnenhkley-[id number]-avlguw the daytime. This is a nondrowsy antihistamine. Use the prednisone once per daily for 5 days. Activity Level: No Restrictions Discharge Diet: Regular Prescriptions: New hydroxyzine HCl 25 mg tablet 25 mg PO TID PRNQty: 20 0RF cetirizine [Zyrtec] 10 mg tablet 10 mg PO DAILY PRN (Reason: allergy symptoms) Qty: 7 0RF prednisone 20 mg tablet 40 mg PO DAILY Qty: 10 0RF No Action clobetasol 0.05 % ointment 1 applic topical QDAY Qty: 30 0RF Rx Instructions: Daily at bedtime for 2 weeks, then 3x weekly at bedtime. buspirone 5 mg tablet 5 mg PO BID ketorolac 10 mg tablet 10 mg PO Q8H 5 Days Qty: 15 0RF Follow Up/Referrals: Machelle Villarreal MD [Primary Care Provider] - Stand Alone Forms: [employer] Info Instructions
[2024-07-15] MEDS: hydrOXYzine pamoate 25 MG CAPSULE PO (22:10)
[2024-07-15] MEDS: predniSONE 20 MG TABLET 40 MG PO (22:11)
--- OUTSIDE RECORDS SUMMARY | 2024-07-15 22:27 | XMS_ITS | Clinical Summary ---
Author Organization [facility] Address [place], [place] [address] Care Team Providers Care Water And Sewer Systems Superintendent Name Role Phone Indu Galvan DO Primary Care Provider [phone] Allergies Active Allergy Reactions Criticality Noted Date Comments Cephalexin Rash 04/24/2017 Penicillins Itching 05/25/2017 Medications Medication Sig Dispensed Refills Start Date End Date Status albuterol HFA (ProAir HFA) 90 mcg/actuation inhalerIndications:T obacco use Inhale 2 Puffs by mouth every 4 hours if needed for Shortness Of Breath. Use with spacer 1 Each 1 06/23/2022 Active SUMAtriptan (IMITREX) 25 mg tabletIndications:Mi graine syndrome Take 1 Tablet (25 mg) by mouth every 2 hours if needed for Migraine. Give at minimum 2hrs apart. Max Dose: 200mg per 24hrs. 10 Tablet 3 07/30/2022 Active citalopram (CELEXA) 10 mg tabletIndications:Dy sthymia,Anxiety state Take 1 Tablet (10 mg) by mouth every morning. 30 Tablet 1 11/04/2023 Active fluticasone (50 mcg per actuation) nasal solution (FLONASE)Indications :Plugged feeling in ear, left Inhale 2 Sprays to both nostrils once daily. 16 g 05/23/2024 Active Active Problems Problem Noted Date Diagnosed Date Cervical radiculopathy at C5 07/30/2022 Dyspepsia 07/30/2022 Fracture of metacarpal bone 07/30/2022 Migraine headache 07/30/2022 Pap smear for cervical cancer screening 05/28/20 22 Overview: Plan: Routine Pap/HPV in 5 yrs (Due 05/2027) Breast cancer screening by mammogram 09/02/2021 Meningioma 09/02/2021 Intracranial mass 12/15/2018 Overview: CT 10/2018 1. Slightly hyperdense centrally calcified extra-axial high left parietal parafalcine mass. There is minimal localized mass effect on an adjacent gyrus. This may represent a meningioma. MRI can be considered for further imaging evaluation. Reviewed via phone consult with neurosurgery who advised follow up scan and consult in 3-6 months Ectasis aorta 12/12/2017 Overview: Needs follow up CT chest in 03/2018 (see scanned document for original CT in 09/2017) Persistent depressive disorder 10/18/2017 GERD (gastroesophageal reflux disease) 4 Hypermetropia 10/09/2012 Drug abuse 08/25/2012 Overview: no longer living in the custodial. meth use last week 01/2017 Anxiety state, unspecified 10/08/2011 Overview: January 2023: buspar started. February 2023: sertraline (Zoloft) added. Lung nodule 02/17/2009 Overview: stable for several years, no further scans needed. Tobacco use disorder 12/16/2007 DUTCH (generalized anxiety disorder) Dysthymia Panic attack Resolved Problems Problem Noted Date Diagnosed Date Resolved Date Syncope 10/08/2011 05/23/2015 Dizziness and giddiness 10/08/201104/29 Leukocytosis 10/08/2011 10/09/2011 Encounters Date Type Department Care Team Description 05/23/2024 10:25 AM CDT Office Visit [facility] [address] [place] [address] Colleen Pierce MD Ear Problem (ear plugged since last night, having problems hearing, sounds muffled) 05/23/2024 Travel 05/09/2024 Telephone [facility] [address] [place] [address] Regine Galaviz PA Headache from Last 3 Months Immunizations Name Administration Dates Next Due COVID-19 Vaccine Spikevax (M oderna 50mcg/0.5mL) 12YO+ 9900-7062 Formula PF 09/30/2023 COVID-19 vaccine ([employer] 30mcg/0.3mL) 12YO+ BIVALENT PF, MDV 08/12/2022 COVID-19 vaccine ([employer]-Bio NTech 30mcg/0.3mL) PF, MDV 09/02/2021 Influenza, IIV3 (Age 6-35 mos) 10/09/2011 Influenza, IIV3 (Age >=3 years) 10/10/2013,09/07,10/09/2011 Influenza, IIV4 09/30/2023,,09/02/2021,2017,09/08/2015,09/04/2014 Pneumococcal Conj 20-valent (Prevnar 20) 09/30/2023 Pneumococcal Poly,23-Valent (Pneumovax) 05/25/2017 Td (Age >=7 Years) 11/26/2005 Tdap 06/23/2022,11/03/2011 Zoster (Shingrix-RZV, recombinant) 06/23/2022, Family History Medical History Relation Name Comments Heart Disease Father [place] Lung cancer Father Lung Parkinsonism Maternal Grandfather Lung cancer Mother Lung Rheum arthritis Mother Cancer-breast No Family History Relation Name Status Comments Brother 1 Alive Brother 2 Alive Daughter Alive Father Maternal Grandfather Maternal Grandmother Mother Paternal Grandfather Paternal Grandmother Sister 1 Alive Sister 2 Alive Son 1 Alive Son 2 Alive Social History Tobacco Use Types Packs/Day Years Used Date Smoking Tobacco: Every Day Cigarettes 1 34.6 Started: 1989 Smokeless Tobacco: Never Tobacco Cessation:Ready to Q uit: No; Counseling Given: No Alcohol Use Standard Drinks/Week Comments Not Currently 0 (1 standard drink = 0.6 oz pur e alcohol) PHQ-2 Answer Date Recorded PHQ-2 TOTAL SCORE 4 11/04/2023 Social Connections Answer Date Recorded Frequency of Communication with Friends and Fami ly 4 09/30/2023 Financial Resource Strain Answer Date R ecorded Difficulty of Paying Living Expenses 2 09/30/2023 Difficulty of Paying Living Expenses 1 09/30/2023 Food Insecurity Answer Date Recorded Worried About Running Out of Food in the Last Ye ar 1 09/30/2023 Transportation Needs Answer Date Record ed Lack of Transportation (Medical) 2 09/30/2023 Housing Stability Answer Date Recorded Unable to Pay for Housing in the Last Year 3 09/30/2023 Sex and Gender Information Value Date Recorded Sex Assigned at Not on file Gender Identity Not on file Sexual Orientation Not on file Obstetrics History Para Term AB IAB SAB Ectopic Multiple Livin g Live Births 5 3 3 2 2 3 3 Date Outcome GA Total Labor Labor/2nd/3rd Weight Sex Type Anes PTL Ava A1 A5 Name Clin Term Living Term Living Term Living SAB SAB Last Filed Vital Signs Vital Sign Reading Time Taken Comments Blood Pressure 117/80 05/23/2024 10:43 AM CDT Pulse 91 05/23/2024 10:43 AM CDT Temperature 36.4 ??C (97.6 ??F) 03/14/2024 12:32 PM C DT Respiratory Rate 22 03/08/2023 4:12 PM CDT Oxygen Saturation 97% 05/23/2024 10:43 AM CDT Inhaled Oxygen Concentration - - Weight 92.1 kg (203 lb) 03/14/2024 10:44 AM CDT Height 157.5 cm (5' 2.01) 03/08/2023 4:12 PM CD T Body Mass Index 37.12 03/08/2023 4:12 PM CDT Plan of Treatment Health Maintenance Due Date Last Done Comments Low Dose CT (for lung CA) ag e 50-80 07/07/2023 07/07/2022, 07/01/2010, 11/17/2009 BMI (ht and wt on same day) for age 18+ 03/08/2024 03/08/2023, 09/28/2022, 09/15/2022, Additional history exists Influenza for age 50-64 07/29/2024 09/30/20 23, 08/12/2022, 09/02/2021, Additional history exists Depression screening for age 12+ 11/04/2024 11/04/2023, 03/11/2023, 03/11/2023, Additional history exists Mammogram for age 45-75 12/06/2024 12/06/19, 09/22/2022, 01/15/2020, Additional history exists Lipids for age 45-75 06/23/2027 06/23/2022, 09/15/20 12 Pap test for age 21-65 06/23/2027 , 06/23/2022, 03/15/2014, Additional history exists Colonoscopy through age 75 07/21/202707/21 (Verified in Care Everywhere or Patient Record) Tetanus booster 06/23/2032 06/23/2022, 05/2011, 11/03/2011 (Completed outside of [facility]), Additional history exists Tdap Completed 06/23/2022, 11/03/2011 Zoster (shingles) series for age 50+ Completed 06/23/2022, 08/02/2018 HIV for age 15-65 Completed 02/17/2023, 10/10/2013 Hepatitis C screening for ag e 18-79 Completed 02/17/2023, 10/10/2013 COVID-19 vaccine series Completed 09/30/20, 08/12/2022, 10/01/2021, Additional history exists Pneumococcal series for age 6-64 Completed 09/30/20, 05/25/2017 Procedures Procedure Name Priority Date/Time Associated Diagnosis Comments XR MAMMO JOSSIE BILAT DIAG Routine 12/06/2023 2:46 PM COPY WORKER Mass of upper inner quadrant of right breast LC HIV-1/O/2, 4TH GENERATION Routine 02/17/2023 9:13 AM CDT Screen for STD (sexually transmitted disease) LC HCV ANTIBODY RFX TO QUANT PCR Routine 02/17/2023 9:13 AM CDT Screen for STD (sexually transmitted disease) CT CHEST SCREENING LOW DOSE WO CONTRAST Routine 07/07/2022 2:32 PM CDT Screening for lung cancer LIPID PANEL W REFLEX MEASURED LDL Routine 06/23/2022 10:03 AM CDT Screening for lipid disorders HPV THIN PREP Routine 06/23/2022 9:28 AM CDT Screening for malignant neoplasm of cervix from Last 3 Months or Most Recently Relevant to Health Maintenance Results * XR MAMMO JOSSIE BILAT DIAG (12/06/2023 2:46 PM COPY WORKER) Anatomical Region Laterality Modality BREASTS, Breast Left, Breast Right Bilateral Mammography Impressions 12/07/2023 9:00 AM COPY WORKER ??Questionable skin lesion or subcutaneous lesion upper inner quadrant RIGHT breast for which ultrasound is recommended. ??Both breasts are otherwise negative. Directed RIGHT breast ultrasound with this radiologist present. ??At the 2 o'clock position 14 cm from the nipple in a superficial subcutaneous or subdermal location is a 7 x 3 x 10 mm sebaceous cyst. This extends to the skin surface. ??This is benign. ??No further work-up or follow-up is recommended. ?? These findings were discussed in detail with the patient. ?? Annual mammography is recommended. ?? BI-RADS Category 2: Benign José Manuel Dumont M.D. Diagnostic/Nuclear Medicine Radiologist [email or web address] [email or web address]/[email or web address] / PATIENTS: You will also receive a letter with your examination results in an easy to read format. ??If you have questions about your results, please contact your referring provider. Narrative 12/07/2023 9:00 AM COPY WORKER As a result of the Century Cures Act, medical imaging exams and procedure reports are released immediately into your electronic medical record. ??You may view this report before your referring provider. ??If you have questions, please contact your health care provider. BILATERAL DIGITAL DIAGNOSTIC MAMMOGRAM WITH COMPUTER-AIDED DETECTION AND TOMOSYNTHESIS, 12/06/2023 RIGHT BREAST ULTRASOUND, 12/06/2023 CLINICAL HISTORY: ??58-year-old female. ??Palpable abnormality upper inner quadrant RIGHT breast. TECHNIQUE: ??CC and MLO views were obtained. ??This study was evaluated with the assistance of computer-aided detection. ??Digital breast tomosynthesis was utilized. ??RIGHT breast ultrasound was also performed. ?? COMPARISON: ??09/22/2022, 01/15/2020. BREAST COMPOSITION: ??There are scattered areas of fibroglandular density FINDINGS: ??There are no dominant masses, suspicious microcalcifications or areas of architectural distortion in either breast. ?? However, within the upper outer inner quadrant of the RIGHT breast in a superficial location is a subtle density which may reflect a skin or subcutaneous lesion. ??Ultrasound is recommended for further evaluation and will be performed subsequently. ?? Indu Galvan DO MAMMO * LC HCV ANTIBODY RFX TO QUANT PCR (02/17/2023 9:13 AM CDT) Pathologist [facility] HCV Ab Non Reactive Non Reactive 02/19/2023 12:07 PM CDT [facility] ([facility]) Blood BLOOD SPECIMEN / Unknown Venipuncture / Unknown 02/17/2023 9:13 AM CDT 02/17/2023 9:15 AM CDT Narrative [facility] - 02/19/2023 12:07 PM CDT Performed at: ??[address] ??[id number] Cryptologic Linguist: Christopher Manuel MD, Phone: ??[phone] Alex Lee MD LABORATORY [facility] ([facility]) [address] [place] [address], * LC HIV-1/O/2, 4TH GENERATION (02/17/2023 9:13 AM CDT) [facility] HIV Scr 4th Gen Non Reactive Non Reactive 02/19/2023 11:08 AM CDT [facility] ([facility] Comment: HIV Negative HIV-1/HIV-2 antibodies and HIV-1 p24 antigen were NOT detected. There is no laboratory evidence of HIV infection. Blood BLOOD SPECIMEN / Unknown Venipuncture / Unknown 02/17/2023 9:13 AM CDT 02/17/2023 9:15 AM CDT Narrative [facility] ([facility] - 02/19/2023 11:08 AM CDT Performed at: ??[address] ??[id number] Cryptologic Linguist: Christopher Manuel MD, Phone: ??[phone] Alex Lee MD LABORATORY [facility] ([facility] [address] [place] [address], * CT CHEST SCREENING LOW DOSE WO CONTRAST (07/07/2022 2:32 PM CDT) Anatomical Region Laterality Modality Computed Tomogra phy Impressions 07/09/2022 7:04 AM CDT Single benign pulmonary nodule unchanged from 07/01/2010. No other significant lung or chest pathology. LUNG-RADS Category 2: Benign appearance or behavior. Recommend continued annual screening with LDCT in 12 months. Please note that all CT scans at this facility use dose modulation, iterative reconstruction and/or weight-based dosing when appropriate to reduce radiation dose to as low as reasonably achievable. ?? Dictated by: Rolo Velasco MD @07/08/2022 8:29:51 AM/CRL:catalinot Narrative 07/09/2022 7:04 AM CDT For Patients: As a result of the Century Cures Act, medical imaging exams and procedure reports are released immediately into your electronic medical record. ??You may view this report before your referring provider. ?? If you have questions, please contact your health care provider. CHEST SCREENING LOW DOSE WITHOUT CONTRAST INDICATION: Lung cancer screening. TECHNIQUE: CT chest without contrast. COMPARISON: 07/01/2010. FINDINGS: Cardiovascular structures: Heart size is normal. Thoracic aorta and main pulmonary artery are normal in caliber. Mediastinum and shine: No sign of mass or adenopathy. Thyroid normal. Lungs: 5 mm nodule left lower lobe (3/64) unchanged. Minimal linear scarring left upper lobe unchanged. Both lung steen are otherwise clear. No additional pulmonary nodules, mass or consolidation. The airways are clear. Pleura and pericardium: No effusions. Chest wall and axilla: No mass or adenopathy. Bones: Degenerative disc disease lower cervical spine. No skeletal lesions in the chest. Upper abdomen: Unremarkable. Roz RETANA CT * (ABNORMAL) LIPID PANEL W REFLEX MEASURED LDL (06/23/2022 10:03 AM CDT) CHOLESTEROL,TOTAL 204(H) 100 - 199 mg/dL 06/23/2022 7:14 PM CDT [facility] TRIGLYCERIDES 152(H) <150 mg/dL 06/23/2022 7:14 PM CDT [facility] HDL CHOLESTEROL 49 >40 mg/dL 7:14 PM CDT [facility] NON-HDL CHOLESTEROL 155(H) <145 mg/dl 06/23/2022 7:14 PM CDT [facility] CHOL/HDL RATIO 4.16 <4.50 06/23/2022 7:14 PM CDT [facility] LDL CHOLESTEROL 125 <=130 mg/dL 06/23/2022 7:14 PM CDT [facility] VLDL CHOLESTEROL 30 <=30 mg/dL 06/23/2022 7:14 PM CDT [facility] TR[facility] PROVIDER ORDERED STATUS RANDOM 06/23/2022 7:14 PM CDT [facility] Blood BLOOD SPECIMEN / Unknown Venipuncture / Unknown 06/23/2022 10:03 AM CDT 06/23/2022 10:05 AM CDT [facility]oz RETANA CHEMISTRY [facility] [address] [place] [address], * HPV HIGH RISK (06/23/2022 9:28 AM CDT) TYPE 16 Negative Negative 06/25/2022 2:40 PM CDT [facility] TYPE 18 Negative Negative 06/25/2022 2:40 PM CDT [facility] OTHER HIGH RISK TYPES Negative Negative 06/25/2022 2:40 PM CDT [facility] Other (Cervical) Non-Blood / Unknown 06/23/2022 9:28 AM CDT 06/23/2022 4:54 PM CDT Narrative [facility] - 06/25/2022 2:40 PM CDT HPV types 16, 18, 31, 33, 35, 39, 45, 51, 52, 56, 58, 59, 66 and 68 DNA were undetectable or below the pre-set threshold. Methodology: Annette Maikel 4800 HPV Test Roz RETANA MICROBIOLOGY [facility] [address] [place] [address], from Last 3 Months or Most Recently Relevant to Health Maintenance Advance Directives * Full Code (Latest Code Status on File) Date Activated Date Inactivated Comments 10/08/2011 7:20 PM 10/09/2011 12:41 PM Care Teams Water And Sewer Systems Superintendent Relationship Specialty Start Date End Date Indu Galvan DO [address] [place] [address] PCP - General Family Practice 10/07/23
== END 2024-07-15 22:29 | disposition home or self-care (01) ==
LOC: ED 22:25
PROVIDERS: Emergency Provider Emergency Medicine; PCP Family Medicine
DX: L50.9 Urticaria, unspecified (principal)
CPT/HCPCS: 99282; 99283; A9270; J7512

== ENCOUNTER 2025-02-09 19:26 | Emergency (ER) | payer BC, SELFPAY ==
--- OUTSIDE RECORDS SUMMARY | 2025-02-09 19:28 | XMS_ITS | Clinical Summary ---
Author Organization [facility] Address [address] [place] [address] Care Team Providers Care Therapist Phys Name Role Phone Indu Galvan DO Primary Care Provider [phone] Allergies Active Allergy Reactions Criticality Noted Date Comments Cephalexin Rash 04/24/2017 Penicillins Itching 05/25/2017 Medications albuterol HFA (ProAir HFA) 90 mcg/actuation inhalerIndicati ons:Tobacco use Inhale 2 Puffs by mouth every 4 hours if needed for Shortness Of Breath. Use with spacer 1 Each 1 2 Active SUMAtriptan (IMITREX) 25 mg tabletIndicatio ns:Migraine syndrome Take 1 Tablet (25 mg) by mouth every 2 hours if needed for Migraine. Give at minimum 2hrs apart. Max Dose: 200mg per 24hrs. 10 Tablet 3 2 Active atorvastatin (LIPITOR) 40 mg tabletIndicatio ns:Coronary artery disease involving skull valley coronary artery of skull valley heart without angina pectoris Take 1 Tablet (40 mg) by mouth at bedtime. 90 Tablet 1 5 Active aspirin (ECOTRIN) 81 mg enteric coated tabletIndicatio ns:Coronary artery disease involving skull [place] coronary artery of skull [place] heart without angina pectoris Take 1 Tablet (81 mg) by mouth once daily with a meal. 100 Tablet 2 5 Active Active Problems Problem Noted Date Diagnosed Date Lung nodule 12/10/2024 Overview (12/10/2024): 12/10/2024: Lung RAD4B with new 6.2 mm nodule within the RIGHT upper lobe. Stable 5.7 mm LEFT lower lobe nodule. Coronary artery disease invo lving skull valley coronary artery of skull [place] heart without angina pectoris 11/30/2024 Cervical radiculopathy at C5 07/30/2022 Dyspepsia 07/30/2022 Fracture of metacarpal bone 07/30/2022 Migraine headache 07/30/2022 Pap smear for cervical cancer screening 05/28/20 22 Overview (08/26/2022): Plan: Routine Pap/HPV in 5 yrs (Due 05/2027) Breast cancer screening by mammogram 09/02/2021 Meningioma 09/02/2021 Intracranial mass 12/15/2018 Overview (12/15/2018): CT 10/2018 1. Slightly hyperdense centrally calcified extra-axial high left parietal parafalcine mass. There is minimal localized mass effect on an adjacent gyrus. This may represent a meningioma. MRI can be considered for further imaging evaluation. Reviewed via phone consult with neurosurgery who advised follow up scan and consult in 3-6 months Ectasis aorta 12/12/2017 Overview (12/12/2017): Needs follow up CT chest in 03/2018 (see scanned document for original CT in 09/2017) Persistent depressive disorder 10/18/2017 GERD (gastroesophageal reflux disease) 4 Hypermetropia 10/09/2012 Drug abuse 08/25/2012 Overview (02/03/2017): no longer living in the correction. meth use last week 01/2017 Anxiety state, unspecified 10/08/2011 Overview (03/21/2023): January 2023: buspar started. February 2023: sertraline (Zoloft) added. Lung nodule 02/17/2009 Overview (08/25/2012): stable for several years, no further scans needed. Tobacco use disorder 12/16/2007 DUTCH (generalized anxiety disorder) Dysthymia Panic attack Resolved Problems Problem Noted Date Diagnosed Date Resolved Date Syncope 10/08/2011 05/23/2015 Dizziness and giddiness 10/08/201104/29 Leukocytosis 10/08/2011 10/09/2011 Encounters Date Type Department Care Team Description 01/17/[address] [facility] Management - Care Management Navigation/[address] [address] Chantel Chan [facility] Navigation 01/15/2025 10:30 AM COACH TOUR DRIVER Ancillary Procedure [facility] [address] [place] [address] 01/15/2025 Travel 01/07/2025 Telephone [facility] [address] [place] [address] Faustina Beaulieu, Follow Up 01/04/2025 2:15 PM COACH TOUR DRIVER Office Visit [facility] [address] [place] [address] Faustina Beaulieu, Abdominal Pain (lower in pelvic area, feels like getting period); Fatigue 01/04/2025 Travel 12/24/2024 Telephone [facility] [address] [place] [address] [facility] Cancer Follow Up 12/19/2024 10:30 AM COACH TOUR DRIVER Office Visit [facility] [address] [facility] [address] [place] [address] Maxx Salazar MD Consult 12/19/2024 Travel 12/10/2024 Telephone [facility] [address] [place] [address] Indu Galvan, Results (Lung cancer screening) 12/07/2024 11:00 AM COACH TOUR DRIVER Ancillary Procedure [facility] [address] [place] [address] 12/07/2024 Travel 12/03/2024 Telephone [facility] [address] [place] [address] Indu Galvan, DO Results 11/30/2024 9:35 AM COACH TOUR DRIVER Office Visit [facility] [address] [facility] [address] Indu Galvan, Follow Up (CT results) 11/30/2024 Travel 11/15/2024 Telephone [facility] [address] [place] [address] Indu Galvan, DO Results (CT scan results) from Last 3 Months Immunizations Immunization Administration Dates Next Due COVID-19 VACCINE SPIKEVAX (M ODERNA 50MCG/0.5ML) 12YO+ PFS 09/30/2023 COVID-19 vaccine (Pfizer-Bio NTech 30mcg/0.3mL) 12YO+ BIVALENT PF, MDV 08/12/2022 COVID-19 vaccine (Pfizer-Bio NTech 30mcg/0.3mL) PF, MDV 09/02/2021 INFLUENZA, IIV3 PF (AGE >= 6 MO) 12/06/2024 Influenza, IIV3 (Age 6-35 mos) 10/09/2011 Influenza, IIV3 (Age >=3 years) 10/10/2013,09/07,10/09/2011 Influenza, IIV4 09/30/2023,,09/02/2021,2017,09/08/2015,09/04/2014 Pneumococcal Conj 20-valent (Prevnar 20) 09/30/2023 Pneumococcal Poly,23-Valent (Pneumovax) 05/25/2017 Td (Age >=7 Years) 11/26/2005 Tdap 06/23/2022,11/03/2011 Zoster (Shingrix-RZV, recombinant) 06/23/2022, Family History Medical History Relation Name Comments Heart Disease Father [place] Lung cancer Father Lung Parkinsonism Maternal Grandfather [...] Date Smoking Tobacco: Every Day Cigarettes 1 35.2 Started: 1989 Smokeless Tobacco: Never Tobacco Cessation:Ready to Q uit: No; Counseling Given: No Alcohol Use Standard Drinks/Week Comments Not Currently 0 (1 standard drink = 0.6 oz pur e alcohol) PHQ-2 Answer Date Recorded PHQ-2 TOTAL SCORE 4 11/04/2023 Social Connections Answer Date Recorded Do you often feel lonely or isolated from those around you? 4 01/04/2025 Financial Resource Strain Answer Date R ecorded Difficulty of Paying Living Expenses 2 01/04/2025 Difficulty of Paying Living Expenses 1 01/04/2025 Food Insecurity Answer Date Recorded Do you worry your food will run out before you are able to buy more? 1 01/04/2025 Transportation Needs Answer Date Record ed Does lack of transportation keep you from medica l appointments? 2 01/04/2025 Does lack of transportation keep you from work, meetings or getting things that you need? 2 01/04/2025 Housing Stability Answer Date Recorded What is your housing situation today? 3 01/04/2025 Utilities Answer Date Recorded Do you have trouble paying f or utilities (for example, heat, electricity, water, phone)? 2 01/04/2025 Comments No Sex and Gender Information Value Date Recorded Sex Assigned at Not on file Legal Sex Female 5:25 AM COACH TOUR DRIVER Gender Identity Not on file Sexual Orientation Not on file Occupation Industry Job Start Date Job End Date unemployed Not on file Not on file Not on file Obstetrics History Para Term AB IAB SAB Ectopic Multiple Livin g Live Births 5 3 3 2 2 3 3 Date Outcome GA Total Labor Labor/2nd/3rd Weight Sex Type Anes PTL Ava A1 A5 Name Clin Term Living Term Living Term Living SAB SAB Last Filed Vital Signs Vital Sign Reading Time Taken Comments Blood Pressure 135/87 01/04/2025 2:15 PM COACH TOUR DRIVER Pulse 98 01/04/2025 2:15 PM COACH TOUR DRIVER Temperature 36.7 C (98.1 F) 01/04/2025 2:15 PM COACH TOUR DRIVER Respiratory Rate 16 12/19/2024 10:06 AM COACH TOUR DRIVER Oxygen Saturation 94% 01/04/2025 2:15 PM COACH TOUR DRIVER Inhaled Oxygen Concentration - - Weight 87.2 kg (192 lb 3.2 oz) 01/04/2025 2:15 P M COACH TOUR DRIVER Height 157.5 cm (5' 2) 10/30/2024 9:00 AM COACH TOUR DRIVER Body Mass Index 35.15 10/30/2024 9:00 AM COACH TOUR DRIVER Plan of Treatment Upcoming Encounters Date Type Department Care Team (Late st Contact Info) Description 02/26/2025 10:30 AM CDT Ancillary Procedure [facility] [address] [place] [address] Health Maintenance Due Date Last Done Comments BMI (ht and wt on same day) for age 18+ 03/08/2024 03/08/2023, 09/28/2022, 09/15/2022, Additional history exists COVID-19 vaccine series ( season) 2024 09/30/2023, 08/12/2022, 10/01/2021, Additional history exists Depression screening for age 12+ 11/04/2024 11/04/2023, 03/11/2023, 03/11/2023, Additional history exists Mammogram for age 45-75 12/06/2024 12/06/19, 09/22/2022, 01/15/2020, Additional history exists Low Dose CT (for lung CA) ag e 50-80 12/07/2025 12/07/2024, 07/07/2022, 07/01/2010, Additional history exists Pap test for age 21-65 06/23/2027 , 06/23/2022, 03/15/2014, Additional history exists Colonoscopy through age 75 07/21/202707/21 (Verified in Care Everywhere or Patient Record) Lipids for age 45-75 10/04/2029 10/04/2024, 06/23/2022, 09/15/2012 Tetanus booster 06/23/2032 06/23/2022, 05/2011, 11/03/2011 ([facility] Additional history exists Tdap Completed 06/23/2022, 11/03/2011 Zoster (shingles) series for age 50+ Completed 06/23/2022, 08/02/2018 HIV for age 15-65 Completed 02/17/2023, 10/10/2013 Hepatitis C screening for ag e 18-79 Completed 02/17/2023, 10/10/2013 Pneumococcal series for age 50+ Completed 3, 05/25/2017 Influenza Vaccine Completed 12/06/2024, , 08/12/2022, Additional history exists Procedures Procedure Name Priority Date/Time Associated Diagnosis Comments CT ABDOMEN PELVIS W Routine 01/15/2025 1 1:06 AM COACH TOUR DRIVER Pelvic pain URINALYSIS MACROSCOPIC - [facility] ONLY POC DIP ([facility]) Routine 01/04/2025 2:27 PM COACH TOUR DRIVER Pelvic pain URINALYSIS MICROSCOPIC Routine 01/04/2025 2:26 PM COACH TOUR DRIVER Pelvic pain CT CHEST SCREENING LOW DOSE WO CONTRAST Routine 12/07/2024 11:18 AM COACH TOUR DRIVER Encounter for screening for lung cancer Personal history of nicotine dependence AST (SGOT) Routine 11/30/2024 10:17 AM COACH TOUR DRIVER Coronary artery disease involving skull valley coronary artery of skull [place] heart without angina pectoris ALT (SGPT) Routine 11/30/2024 10:17 AM COACH TOUR DRIVER Coronary artery disease involving skull [place] coronary artery of skull [place] heart without angina pectoris LIPID PANEL W REFLEX MEASURED LDL Routine 10/04/2024 4:46 PM COACH TOUR DRIVER Hyperlipidemia, unspecified hyperlipidemia type XR MAMMO JOSSIE BILAT DIAG Routine 12/06/2023 2:46 PM COACH TOUR DRIVER Mass of upper inner quadrant of right breast LC HIV-1/O/2, 4TH GENERATION Routine 02/17/2023 9:13 AM CDT Screen for STD (sexually transmitted disease) LC HCV ANTIBODY RFX TO QUANT PCR Routine 02/17/2023 9:13 AM CDT Screen for STD (sexually transmitted disease) HPV HIGH RISK Routine 06/23/2022 9:28 AM CDT Screening for malignant neoplasm of cervix from Last 3 Months or Most Recently Relevant to Health Maintenance Results * CT ABDOMEN PELVIS W (01/15/2025 11:06 AM COACH TOUR DRIVER) Anatomical Region Laterality Modality Abdomen, Pelvis, AORTA, LIVER, SPLEEN Computed Tomography 01/15/2025 3:40 PM COACH TOUR DRIVER Impressions 01/15/2025 3:40 PM COACH TOUR DRIVER 1. Etiology of pelvic pain not evident. 2. Sigmoid and left colonic diverticulosis but no evidence of diverticulitis. Please note that all CT scans at this facility use dose modulation, iterative reconstruction, and/or weight-based dosing when appropriate to reduce radiation dose to as low as reasonably achievable. Dictated by Raffaele Magaña MD @ 01/15/2025 3:40:30 PM (Electronically Signed) Narrative 01/15/2025 3:40 PM COACH TOUR DRIVER For Patients: As a result of the Cures Act, medical imaging exams and procedure reports are released immediately into your electronic medical record. You may view this report before your referring provider. If you have questions, please contact your health care provider. INDICATION: Acute pelvic pain TECHNIQUE: Volumetric helical scanning of the abdomen and pelvis was performed with 100 cc of Omnipaque 350 contrast material IV. Coronal and sagittal reconstructions were obtained. COMPARISON: Abdomen/pelvis CT of 12/30/2021 FINDINGS: There is no evidence of bowel obstruction or inflammation. Sigmoid and left colonic diverticulosis is again demonstrated. A normal appendix is noted. The liver is normal in size, shape and attenuation. The bile ducts are within normal limits. The spleen, adrenal glands and pancreas are negative. The kidneys are unremarkable. No lymphadenopathy is evident. No free fluid is demonstrated. Uterus and ovaries are unremarkable. The lung bases are essentially clear, and heart size is normal. Procedure Note Raffaele Magaña MD - 01/15/2025 For Patients: As a result of the Cures Act, medical imagingexams and procedure reports are released immediately into your electronicmedical record. You may view this report before your referring provider.If you have questions, please contact your health care provider. INDICATION: Acute pelvic pain TECHNIQUE: Volumetric helical scanning of the abdomen and pelvis was performed hawe942 cc of Omnipaque 350 contrast material IV. Coronal and sagittalreconstructions were obtained. COMPARISON: Abdomen/pelvis CT of 12/30/2021 FINDINGS: There is no evidence of bowel obstruction or inflammation. Sigmoid andleft colonic diverticulosis is again demonstrated. A normal appendix isnoted. The liver is normal in size, shape and attenuation. The bile ducts arewithin normal limits. The spleen, adrenal glands and pancreas arenegative. The kidneys are unremarkable. No lymphadenopathy is evident. Nofree fluid is demonstrated. Uterus and ovaries are unremarkable. The lung bases are essentially clear, and heart size is normal. IMPRESSION: 1. Etiology of pelvic pain not evident. 2. Sigmoid and left colonic diverticulosis but no evidence ofdiverticulitis. Please note that all CT scans at this facility use dose modulation,iterative reconstruction, and/or weight-based dosing when appropriate toreduce radiation dose to as low as reasonably achievable. Dictated by Raffaele Magaña MD @ 01/15/2025 3:40:30 PM (Electronically Signed) us Faustina Andres Detert DO CT Final Resul t * (ABNORMAL) POCT Urinalysis Dipstick Only (01/04/2025 2:27 PM COACH TOUR DRIVER) PH 5.5 5.0 - 8.0 [facility] SPECIFIC GRAVITY > OR = 1.030 1.001 - 1.035 [facility] Comment: Specific [place] values resulted are outside the analytical measurement range of this device. Recommend repeat/additional testing as clinically indicated. GLUCOSE NEGATIVE NEGATIVE [facility] BILIRUBIN NEGATIVE NEGATIVE [facility] KETONES NEGATIVE NEGATIVE [facility] OCCULT BLOOD TRACE(A) NEGATIVE [facility] PROTEIN NEGATIVE NEGATIVE [facility] NITRITE NEGATIVE NEGATIVE [facility] LEUKOCYTE ESTERASE NEGATIVE NEGATIVE [facility] Urine URINE SPECIMEN / Unknown 01/04/2025 2:27 PM COACH TOUR DRIVER 01/04/2025 2:28 PM COACH TOUR DRIVER us Faustina Andres Detert DO URINE Final Resul t [facility] [address] [place] [address], [place] [phone] [facility] [address] [place] [address] * URINALYSIS MICROSCOPIC (01/04/2025 2:26 PM COACH TOUR DRIVER) RBC 0-2 0-2, None Seen /HPF 01/05/2025 1:18 AM COACH TOUR DRIVER [facility] WBC 3-5 0-2, 3-5, None Seen /HPF 01/05/2025 1:18 AM COACH TOUR DRIVER [facility] BACTERIA Few None Seen, Rare, Few Bacteria/H PF 01/05/2025 1:18 AM COACH TOUR DRIVER [facility] EPITHELIAL CELLS Few None Seen, Few Epi/HPF 01/05/2025 1:18 AM COACH TOUR DRIVER [facility] HYALINE CASTS 0-2 0-2, 3-5 /LPF 01/05/2025 1:18 AM COACH TOUR DRIVER [facility] Urine URINE SPECIMEN / Unknown Non-Blood / Unknown 01/04/2025 2:26 PM COACH TOUR DRIVER 01/04/2025 2:26 PM COACH TOUR DRIVER us Faustina Beaulieu DO URINE Final Resul t [facility] [address] [place] [address], [place] * CT CHEST SCREENING LOW DOSE WO CONTRAST [[id number]] -- Criteria: must meet ALL: Age 50-80, current smoker or quit within the last 15 years, AND 20+ pack-year history (12/07/2024 11:18 AM COACH TOUR DRIVER) Anatomical Region Laterality Modality Computed Tomogra phy Impressions 12/10/2024 1:37 PM COACH TOUR DRIVER New 6.2 mm nodule within the RIGHT upper lobe. Stable 5.7 mm LEFT lower lobe nodule. LUNG-RADS CATEGORY 4B: VERY SUSPICIOUS: Chest CT with or without contrast, PET/CT and/or tissue sampling depending on the probability of malignancy and comorbidities. PET/CT may be used when there is a greater than or equal to 8 mm solid component. RADIOLOGIST RECOMMENDATION: PET/CT. Please note that all CT scans at this facility use dose modulation, iterative reconstruction and/or weight-based dosing when appropriate to reduce radiation dose to as low as reasonably achievable. Dictated by: Abrahan Armando MD @12/07/2024 3:35:50 PM CRL:[email or web address] Narrative 12/10/2024 1:37 PM COACH TOUR DRIVER For Patients: As a result of the Century Cures Act, medical imaging exams and procedure reports are released immediately into your electronic medical record. You may view this report before your referring provider. If you have questions, please contact your health care provider. CT CHEST SCREENING LOW-DOSE WITHOUT CONTRAST, 12/07/2024 INDICATION: Lung cancer screening. History of smoking. High-risk patient with greater than 26-psfd-epop smoking history. TECHNIQUE: Low-dose lung cancer screening noncontrast CT chest. Dose reduction techniques were used. COMPARISON: 07/07/2022 FINDINGS: NODULES: Subsolid nodule is present measuring 6.2 mm, RIGHT upper lobe, 5/46, new from prior. Stable noncalcified nodule within the LEFT lower lobe measuring 5.7 mm, 5/86. LUNGS AND PLEURA: Linear scarring within the anterior LEFT lung. Emphysema. MEDIASTINUM: No enlarged lymph nodes. CORONARY ARTERY CALCIFICATION: None. LIMITED UPPER ABDOMEN: Unremarkable. MUSCULOSKELETAL: No fracture. us Indu Galvan DO CT Final Resu lt * ALT (SGPT) (11/30/2024 10:17 AM COACH TOUR DRIVER) ALT 13 6 - 29 U/L [facility] Blood BLOOD SPECIMEN / Unknown 11/30/2024 10:17 AM COACH TOUR DRIVER 11/30/2024 10:18 AM COACH TOUR DRIVER us Indu Galvan DO CHEMISTRY Final Resu lt [facility] [address] [place] [address], [place] [phone] [facility] [address] [place] [address] * AST (SGOT) (11/30/2024 10:17 AM COACH TOUR DRIVER) AST 14 10 - 35 U/L [employer] [facility] Blood BLOOD SPECIMEN / Unknown 11/30/2024 10:17 AM COACH TOUR DRIVER 11/30/2024 10:18 AM COACH TOUR DRIVER us Indu Galvan DO CHEMISTRY Final Resu lt [facility] [address] [place] [address], [employer] [facility] [address] [place] [address] * (ABNORMAL) LIPID PANEL W REFLEX MEASURED LDL (10/04/2024 4:46 PM COACH TOUR DRIVER) Pathologist [facility] CHOLESTEROL, TOTAL 210(H) <200 mg/dL [facility] HDL CHOLESTEROL 54 > OR = 50 mg/dL [facility] TRIGLYCERIDES 255(H) <150 mg/dL [facility] Comment: If a non-fasting specimen was collected, consider repeat triglyceride testing on a fasting specimen if clinically indicated. Mayo et al. J. of Clin. Lipidol. 2015;9:129-169. LDL-CHOLESTEROL 120(H) mg/dL (calc) [facility] Comment: Reference range: <100 Desirable range <100 mg/dL for primary prevention; <70 mg/dL for patients with CHD or diabetic patients with > or = 2 CHD risk factors. LDL-C is now calculated using the Casper-Beatriz calculation, which is a validated novel method providing better accuracy than the Friedewald equation in the estimation of LDL-C. Casper SS et al. EMILIO. 2013;310(19): 1235-5185 (http://education.igadget.asia/faq/TYJ575) CHOL/HDLC RATIO 3.9 <5.0 (calc) [facility] NON HDL CHOLESTEROL 156(H) <130 mg/dL (calc) [facility] Comment: For patients with diabetes plus 1 major ASCVD risk factor, treating to a non-HDL-C goal of <100 mg/dL (LDL-C of <70 mg/dL) is considered a therapeutic option. Blood BLOOD SPECIMEN / Unknown 10/04/2024 4:46 PM COACH TOUR DRIVER 10/04/2024 4:46 PM COACH TOUR DRIVER Indu Alegria Cole DO CHEMISTRY Final Resu lt [facility] [address] [place] [address], [facility] [address] [place] [address] * XR MAMMO JOSSIE BILAT DIAG (12/06/2023 2:46 PM COACH TOUR DRIVER) Anatomical Region Laterality Modality BREASTS, Breast Left, Breast Right Bilateral Mammography Impressions 12/07/2023 9:00 AM COACH TOUR DRIVER Questionable skin lesion or subcutaneous lesion upper inner quadrant RIGHT breast for which ultrasound is recommended. Both breasts are otherwise negative. Directed RIGHT breast ultrasound with this radiologist present. At the 2 o'clock position 14 cm from the nipple in a superficial subcutaneous or subdermal location is a 7 x 3 x 10 mm sebaceous cyst. This extends to the skin surface. This is benign. No further work-up or follow-up is recommended. These findings were discussed in detail with the patient. Annual mammography is recommended. BI-RADS Category 2: Benign José Manuel Dumont M.D. Diagnostic/Nuclear Medicine Radiologist [email or web address] HIPOLITO/tray / PATIENTS: You will also receive a letter with your examination results in an easy to read format. If you have questions about your results, please contact your referring provider. Narrative 12/07/2023 9:00 AM COACH TOUR DRIVER As a result of the Century Cures Act, medical imaging exams and procedure reports are released immediately into your electronic medical record. You may view this report before your referring provider. If you have questions, please contact your health care provider. BILATERAL DIGITAL DIAGNOSTIC MAMMOGRAM WITH COMPUTER-AIDED DETECTION AND TOMOSYNTHESIS, 12/06/2023 RIGHT BREAST ULTRASOUND, 12/06/2023 CLINICAL HISTORY: 58-year-old female. Palpable abnormality upper inner quadrant RIGHT breast. TECHNIQUE: CC and MLO views were obtained. This study was evaluated with the assistance of computer-aided detection. Digital breast tomosynthesis was utilized. RIGHT breast ultrasound was also performed. COMPARISON: 09/22/2022, 01/15/2020. BREAST COMPOSITION: There are scattered areas of fibroglandular density FINDINGS: There are no dominant masses, suspicious microcalcifications or areas of architectural distortion in either breast. However, within the upper outer inner quadrant of the RIGHT breast in a superficial location is a subtle density which may reflect a skin or subcutaneous lesion. Ultrasound is recommended for further evaluation and will be performed subsequently. Indu Galvan DO MAMMO Final Resu lt * LC HCV ANTIBODY RFX TO QUANT PCR (02/17/2023 9:13 AM CDT) Pathologist [facility] HCV Ab Non Reactive Non Reactive 02/19/2023 12:07 PM CDT [facility] Blood BLOOD SPECIMEN / Unknown Venipuncture / Unknown 02/17/2023 9:13 AM CDT 02/17/2023 9:15 AM CDT Narrative [facility] - 02/19/2023 12:07 PM CDT Performed at: [address] [place] [id number] Prn Occupational Therapist: Christopher Manuel MD, Phone: [phone] Alex Lee MD LABORATORY Final Res ult [facility] ([facility]) [address] [place] [address], [place] * LC HIV-1/O/2, 4TH GENERATION (02/17/2023 9:13 AM CDT) [facility] HIV Scr 4th Gen Non Reactive Non Reactive 02/19/2023 11:08 AM CDT [facility] Comment: HIV Negative HIV-1/HIV-2 antibodies and HIV-1 p24 antigen were NOT detected. There is no laboratory evidence of HIV infection. Blood BLOOD SPECIMEN / Unknown Venipuncture / Unknown 02/17/2023 9:13 AM CDT 02/17/2023 9:15 AM CDT Narrative [facility] (CET) - 02/19/2023 11:08 AM CDT Performed at: [address] [place] [address] [place] [employer] [place] [id number] Prn Occupational Therapist: Christopher Manuel MD, Phone: [phone] us Alex Lee MD LABORATORY Final Res ult Performing Organization Address City/[facility]/ZIP Co de Phone Number [facility] ([facility]) [address] [place] [address] * HPV HIGH RISK (06/23/2022 9:28 AM CDT) [facility] TYPE 16 Negative Negative 06/25/2022 2:40 PM CDT [facility] TR[facility] LAB[facility]ATORY TYPE 18 Negative Negative 06/25/2022 2:40 PM CDT [facility] OTHER HIGH RISK TYPES Negative Negative 06/25/2022 2:40 PM CDT [facility] Other (Cervical) Non-Blood / Unknown 06/23/2022 9:28 AM CDT 06/23/2022 4:54 PM CDT Narrative [facility]EN[facility]AL LABORATORY - 06/25/2022 2:40 PM CDT HPV types 16, 18, 31, 33, 35, 39, 45, 51, 52, 56, 58, 59, 66 and 68 DNA were undetectable or below the pre-set threshold. Methodology: Annette Maikel 4800 HPV Test us Roz RETANA MICROBIOLOGY Final Resu lt [facility] [address] [place] [address], from Last 3 Months or Most Recently Relevant to Health Maintenance [place] [id number] [facility] Advance Directives * Full Code (Latest Code Status on File) Date Activated Date Inactivated Comments 10/08/2011 7:20 PM 10/09/2011 12:41 PM Care Teams Therapist Phys Relationship Specialty Start Date End Date Indu Galvan DO [address] [place] [address] PCP - General Family Practice 10/07/23
[2025-02-09 19:56] VITALS: BP 131/73; PULSE 104; RESP 20; TEMP 36.8; O2SAT 95; BMI 32.9
--- OUTSIDE RECORDS SUMMARY | 2025-02-09 20:22 | XMS_ITS | Clinical Summary ---
Author Organization [facility] Address [address] [place] [address] Care Team Providers Care Manager Distribution Name Role Phone Indu Galvan DO Primary Care Provider [phone]- [phone] Allergies Active Allergy Reactions Criticality Noted Date [...] 40 mg tabletIndicatio ns:Coronary artery disease involving nez perce coronary artery of nez perce heart without angina pectoris Take 1 Tablet (40 mg) by mouth at bedtime. 90 Tablet 1 5 Active aspirin (ECOTRIN) 81 mg enteric coated tabletIndicatio ns:Coronary artery disease involving nez perce coronary artery of nez perce heart without angina pectoris Take 1 Tablet (81 mg) by mouth once daily with a meal. 100 Tablet 2 5 Active Active Problems Problem Noted Date Diagnosed Date Lung nodule 12/10/2024 Overview (12/10/2024): 12/10/2024: Lung RAD4B with new 6.2 mm nodule within the RIGHT upper lobe. Stable 5.7 mm LEFT lower lobe nodule. Coronary artery disease invo lving nez perce coronary artery of nez perce heart without angina pectoris 11/30/2024 Cervical radiculopathy [...] Overview (02/03/2017): [place]. meth use last week 01/2017 Anxiety state, [...] Department Care Team Description 01/17/2025 Patient Outreach [facility] Management - Care Management Navigation/[address] [address] Chantel Chan [facility] Navigation 01/15/2025 10:30 AM IMAGING ADMINISTRATOR Ancillary Procedure [facility] [address] [place] [address] 01/15/2025 Travel 01/07/2025 Telephone [facility] [address] [place] [address] Faustina Beaulieu, Follow Up 01/04/2025 2:15 PM IMAGING ADMINISTRATOR Office Visit [facility] [address] [place] [address] Faustina Beaulieu, Abdominal Pain (lower in pelvic area, feels like getting period); Fatigue 01/04/2025 Travel 12/24/[address] [facility] [address] [place] [address] [facility] Cancer Follow Up 12/19/2024 10:30 AM IMAGING ADMINISTRATOR Office Visit [facility] [address] [place] [address] Maxx Salazar MD Consult 12/19/2024 Travel 12/10/[address] [facility] [address] [place] [address] Indu Galvan, Results (Lung cancer screening) 12/07/2024 11:00 AM IMAGING ADMINISTRATOR Ancillary Procedure [facility] [address] [place] [address] 12/07/2024 Travel 12/03/2024 Telephone [facility] [address] [place] [address] Indu Galvan, DO Results 11/30/2024 9:35 AM IMAGING ADMINISTRATOR [facility] [address] [facility] [address] Indu Galvan, Follow Up (CT results) 11/30/2024 Travel 11/15/2024 Telephone [facility] [address] [place] [address] Indu Galvan, DO Results (CT scan results) [...] History Relation Name Comments Heart Disease Father [place] Lung cancer Father Lung Parkinsonism Maternal Grandfather [...] on file Legal Sex Female 5:25 AM IMAGING ADMINISTRATOR Gender Identity Not on file Sexual Orientation [...] Comments Blood Pressure 135/87 01/04/2025 2:15 PM IMAGING ADMINISTRATOR Pulse 98 01/04/2025 2:15 PM IMAGING ADMINISTRATOR Temperature 36.7 C (98.1 F) 01/04/2025 2:15 PM IMAGING ADMINISTRATOR Respiratory Rate 16 12/19/2024 10:06 AM IMAGING ADMINISTRATOR Oxygen Saturation 94% 01/04/2025 2:15 PM IMAGING ADMINISTRATOR Inhaled Oxygen Concentration - - Weight 87.2 kg (192 lb 3.2 oz) 01/04/2025 2:15 P M IMAGING ADMINISTRATOR Height 157.5 cm (5' 2) 10/30/2024 9:00 AM IMAGING ADMINISTRATOR Body Mass Index 35.15 10/30/2024 9:00 AM IMAGING ADMINISTRATOR Plan of Treatment Upcoming Encounters Date Type Department Care Team (Late st Contact Info) Description 02/26/2025 10:30 AM CDT Ancillary Procedure [facility] [address] [place] [address] Health Maintenance Due Date Last Done Comments [...] 06/23/2032 06/23/2022, 05/2011, 11/03/2011 ([facility]), Additional history exists Tdap Completed 06/23/2022, 11/03/2011 [...] PELVIS W Routine 01/15/2025 1 1:06 AM IMAGING ADMINISTRATOR Pelvic pain URINALYSIS MACROSCOPIC - [facility] ONLY POC DIP ([facility]) Routine 01/04/2025 2:27 PM IMAGING ADMINISTRATOR Pelvic pain URINALYSIS MICROSCOPIC Routine 01/04/2025 2:26 PM IMAGING ADMINISTRATOR Pelvic pain CT CHEST SCREENING LOW DOSE WO CONTRAST Routine 12/07/2024 11:18 AM IMAGING ADMINISTRATOR Encounter for screening for lung cancer Personal history of nicotine dependence AST (SGOT) Routine 11/30/2024 10:17 AM IMAGING ADMINISTRATOR Coronary artery disease involving nez perce coronary artery of nez perce heart without angina pectoris ALT (SGPT) Routine 11/30/2024 10:17 AM IMAGING ADMINISTRATOR Coronary artery disease involving nez perce coronary artery of nez perce heart without angina pectoris LIPID PANEL W REFLEX MEASURED LDL Routine 10/04/2024 4:46 PM IMAGING ADMINISTRATOR Hyperlipidemia, unspecified hyperlipidemia type XR MAMMO JOSSIE BILAT DIAG Routine 12/06/2023 2:46 PM IMAGING ADMINISTRATOR Mass of upper inner quadrant of right [...] CT ABDOMEN PELVIS W (01/15/2025 11:06 AM IMAGING ADMINISTRATOR) Anatomical Region Laterality Modality Abdomen, Pelvis, AORTA, LIVER, SPLEEN Computed Tomography 01/15/2025 3:40 PM IMAGING ADMINISTRATOR Impressions 01/15/2025 3:40 PM IMAGING ADMINISTRATOR 1. Etiology of pelvic pain not evident. 2. Sigmoid and left colonic diverticulosis but no evidence of diverticulitis. Please note that all CT scans at this facility use dose modulation, iterative reconstruction, and/or weight-based dosing when appropriate to reduce radiation dose to as low as reasonably achievable. Dictated by Raffaele Magaña MD @ 01/15/2025 3:40:30 PM (Electronically Signed) Narrative 01/15/2025 3:40 PM IMAGING ADMINISTRATOR For Patients: As a result of the [...] of the abdomen and pelvis was performed [id number] cc of Omnipaque 350 contrast material IV. [...] POCT Urinalysis Dipstick Only (01/04/2025 2:27 PM IMAGING ADMINISTRATOR) PH 5.5 5.0 - 8.0 [facility] SPECIFIC GRAVITY > OR = 1.030 1.001 - 1.035 [facility] Comment: Specific [place] values resulted are outside the analytical measurement range of this device. Recommend repeat/additional testing as clinically indicated. GLUCOSE NEGATIVE NEGATIVE [facility] BILIRUBIN NEGATIVE NEGATIVE [facility] KETONES NEGATIVE NEGATIVE [facility] OCCULT BLOOD TRACE(A) NEGATIVE [facility] PROTEIN NEGATIVE NEGATIVE [facility] NITRITE NEGATIVE NEGATIVE [facility] LEUKOCYTE ESTERASE NEGATIVE NEGATIVE [facility] Urine URINE SPECIMEN / Unknown 01/04/2025 2:27 PM IMAGING ADMINISTRATOR 01/04/2025 2:28 PM IMAGING ADMINISTRATOR us Faustina Andres Detert DO URINE Final Resul t [facility] [address] [place] [address], [place] [phone] [facility] [address] [place] [address] * URINALYSIS MICROSCOPIC (01/04/2025 2:26 PM IMAGING ADMINISTRATOR) RBC 0-2 0-2, None Seen /HPF 01/05/2025 1:[address] [facility] WBC 3-5 0-2, 3-5, None Seen /HPF 01/05/2025 1:[address] [facility] BACTERIA Few None Seen, Rare, Few Bacteria/H PF 01/05/2025 1:[address] [facility] EPITHELIAL CELLS Few None Seen, Few Epi/HPF 01/05/2025 1:[address] [facility] HYALINE CASTS 0-2 0-2, 3-5 /LPF 01/05/2025 1:[address] [facility] Urine URINE SPECIMEN / Unknown Non-Blood / Unknown 01/04/2025 2:26 PM IMAGING ADMINISTRATOR 01/04/2025 2:26 PM IMAGING ADMINISTRATOR us Faustina Beaulieu DO URINE Final Resul t [facility] [address] [place] [address], [place] * CT CHEST SCREENING LOW DOSE WO CONTRAST [[id number]] -- Criteria: must meet ALL: Age 50-80, current smoker or quit within the last 15 years, AND 20+ pack-year history (12/07/2024 11:18 AM IMAGING ADMINISTRATOR) Anatomical Region Laterality Modality Computed Tomogra phy Impressions 12/10/2024 1:37 PM IMAGING ADMINISTRATOR New 6.2 mm nodule within the RIGHT [...] 3:35:50 PM CRL:jorge Narrative 12/10/2024 1:37 PM IMAGING ADMINISTRATOR For Patients: As a result of the Century Cures Act, medical imaging exams and procedure reports are released immediately into your electronic medical record. You may view this report before your referring provider. If you have questions, please contact your health care provider. CT CHEST SCREENING LOW-DOSE WITHOUT CONTRAST, 12/07/2024 INDICATION: Lung cancer screening. History of smoking. High-risk patient with greater than 96-[id number]-vvdf smoking history. TECHNIQUE: Low-dose lung cancer screening [...] lt * ALT (SGPT) (11/30/2024 10:17 AM IMAGING ADMINISTRATOR) ALT 13 6 - 29 U/L [facility] Blood BLOOD SPECIMEN / Unknown 11/30/2024 10:17 AM IMAGING ADMINISTRATOR 11/30/2024 10:18 AM IMAGING ADMINISTRATOR us Indu Galvan DO CHEMISTRY Final Resu lt [facility] [address] [place] [address], [place] [phone] [facility] [address] [place] [address] * AST (SGOT) (11/30/2024 10:17 AM IMAGING ADMINISTRATOR) AST 14 10 - 35 U/L [facility] Blood BLOOD SPECIMEN / Unknown 11/30/2024 10:17 AM IMAGING ADMINISTRATOR 11/30/2024 10:18 AM IMAGING ADMINISTRATOR us Indu Galvan DO CHEMISTRY Final Resu lt [facility] [address] [place] [address], [facility] [address] [place] [address] * (ABNORMAL) LIPID PANEL W REFLEX MEASURED LDL (10/04/2024 4:46 PM IMAGING ADMINISTRATOR) Pathologist [facility] CHOLESTEROL, TOTAL 210(H) <200 mg/dL [facility] HDL CHOLESTEROL 54 > OR = 50 mg/dL [facility] TRIGLYCERIDES 255(H) <150 mg/dL [facility] Comment: If a non-fasting specimen was collected, consider repeat triglyceride testing on a fasting specimen if clinically indicated. Mayo et al. J. of Clin. Lipidol. 2015;9:129-169. LDL-CHOLESTEROL 120(H) mg/dL (calc) [facility] Comment: Reference range: <100 Desirable range <100 mg/dL for primary prevention; <70 mg/dL for patients with CHD or diabetic patients with > or = 2 CHD risk factors. LDL-C is now calculated using the Casper-Beatriz calculation, which is a validated novel method providing better accuracy than the Friedewald equation in the estimation of LDL-C. Casper SS et al. EMILIO. 2013;310(19): 9410-6431 (http://education.SkyBridge/faq/CEH854) CHOL/HDLC RATIO 3.9 <5.0 (calc) [facility] NON HDL CHOLESTEROL 156(H) <130 mg/dL (calc) [facility] Comment: For patients with diabetes plus 1 major ASCVD risk factor, treating to a non-HDL-C goal of <100 mg/dL (LDL-C of <70 mg/dL) is considered a therapeutic option. Blood BLOOD SPECIMEN / Unknown 10/04/2024 4:46 PM IMAGING ADMINISTRATOR 10/04/2024 4:46 PM IMAGING ADMINISTRATOR Indu Alegria Cole DO CHEMISTRY Final Resu lt [facility] [address] [place] [address], [facility] [address] [place] [address] * XR MAMMO JOSSIE BILAT DIAG (12/06/2023 2:46 PM IMAGING ADMINISTRATOR) Anatomical Region Laterality Modality BREASTS, Breast Left, Breast Right Bilateral Mammography Impressions 12/07/2023 9:00 AM IMAGING ADMINISTRATOR Questionable skin lesion or subcutaneous lesion upper [...] your referring provider. Narrative 12/07/2023 9:00 AM IMAGING ADMINISTRATOR As a result of the Century Cures [...] Reactive Non Reactive 02/19/2023 12:07 PM CDT [facility] ([facility]) Blood BLOOD SPECIMEN / Unknown Venipuncture / Unknown 02/17/2023 9:13 AM CDT 02/17/2023 9:15 AM CDT Narrative [facility] ([facility]) - 02/19/2023 12:07 PM CDT Performed at: [address] [place] [id number] Environmental Communications Specialist: Christopher Manuel MD, Phone: [phone] Alex Lee MD LABORATORY Final Res ult [facility] ([facility]) [address] [place] [address], [place] * LC HIV-1/O/2, 4TH GENERATION (02/17/2023 9:13 AM CDT) [facility] HIV Scr 4th Gen Non Reactive Non Reactive 02/19/2023 11:08 AM CDT [facility] ([facility]ET) Comment: HIV Negative HIV-1/HIV-2 antibodies and HIV-1 p24 antigen were NOT detected. There is no laboratory evidence of HIV infection. Blood BLOOD SPECIMEN / Unknown Venipuncture / Unknown 02/17/2023 9:13 AM CDT 02/17/2023 9:15 AM CDT Narrative [facility] ([facility]) - 02/19/2023 11:08 AM CDT Performed at: [address] [place] [address] [employer] [place], [place] [id number] Environmental Communications Specialist: Christopher Manuel MD, Phone: [phone] us Alex Lee MD LABORATORY Final Res ult Performing Organization Address City/[facility]/ZIP Co de Phone Number [facility] ([facility]) [address] [place] [address] * HPV HIGH RISK (06/23/2022 9:28 AM CDT) [facility] TYPE 16 Negative Negative 06/25/2022 2:40 PM CDT [facility] LAB[facility]ATORY TYPE 18 Negative Negative 06/25/2022 2:40 PM CDT [facility] LAB[facility] OTHER HIGH RISK TYPES Negative Negative 06/25/2022 2:40 PM CDT [facility] TR[facility] LABORATORY Other (Cervical) Non-Blood / Unknown 06/23/2022 9:28 AM CDT 06/23/2022 4:54 PM CDT Narrative [facility]AL LABORAT[facility] - 06/25/2022 2:40 PM CDT HPV types 16, 18, 31, 33, 35, 39, 45, 51, 52, 56, 58, 59, 66 and 68 DNA were undetectable or below the pre-set threshold. Methodology: Annette Maikel 4800 HPV Test us Roz RETANA MICROBIOLOGY Final Resu lt [facility] [address] [place] [address], from Last 3 Months or Most Recently Relevant to Health Maintenance [place] [id number] [facility] Advance Directives * Full Code (Latest Code Status on File) Date Activated Date Inactivated Comments 10/08/2011 7:20 PM 10/09/2011 12:41 PM Care Teams Manager Distribution Relationship Specialty Start Date End Date Indu Galvan DO [address] [place] [address] PCP - General Family Practice 10/07/23
== END 2025-02-09 20:21 | disposition left against medical advice (07) ==
PROVIDERS: Emergency Provider Family Medicine; PCP Family Medicine; Visit Provider Family Medicine
DX: Z53.21 Procedure and treatment not carried out due to patient leaving prior to being seen by health care provider (principal)
CPT/HCPCS: 99281

== ENCOUNTER 2025-05-26 21:21 | Emergency (ER) | payer BC, SELFPAY ==
[2025-05-26 22:09] VITALS: BP 123/84; PULSE 86; RESP 18; TEMP 36.3; O2SAT 97; BMI 32.9
== END 2025-05-26 23:00 | disposition left against medical advice (07) ==
PROVIDERS: Emergency Provider Emergency Medicine; PCP Family Medicine
DX: Z53.21 Procedure and treatment not carried out due to patient leaving prior to being seen by health care provider (principal)
CPT/HCPCS: 99281

== ENCOUNTER 2025-05-29 03:00 | Emergency (ER) | payer BC, SELFPAY ==
--- NOTE | 2025-05-29 03:03 | ED_ITS ---
HPI - General Adult General Time Seen by Provider: 03:03 Date Seen: 05/29/25 Chief complaint: Skin/Abscess/Foreign Body Stated complaint: Poison cecilia Time Seen by Provider: 05/29/25 03:03 Source: patient, RN notes reviewed and old records reviewed Mode of arrival: ambulatory Limitations: no limitations History of Present Illness HPI narrative: 60-year-old female who comes in today with a rash. Patient complains of itching all over. No new soaps, lotions, or detergents. She thought she was exposed to poison cecilia. No breathing problems, no swollen the lips or tongue, has not taken anything for this. 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, unspecified, in remission (ICD-10) Surgical History (Updated 10/18/23 @ 09:04 by Tammy Patten) History of 2 sections ?Z98.891 - History of uterine scar from previous surgery (ICD-10) History of tubal ligation ?Z98.51 - Tubal ligation status (ICD-10) Social History Smoking Status: Current every day smoker What tobacco products do you use: cigarettes Smoking packs per day: 0.5 Smoking cigarettes per day: 10.0 Years smoked: 25 Smoking pack-years: 12.50 Second hand tobacco smoke exposure: Yes How often do you have a drink containing alcohol: never How many standard drinks containing alcohol do you have on a typical day: 1 or 2 How often do you have six or more drinks on one occasion: Never AUDIT-C Alcohol total score: 0 Non-prescribed substance use: denies use service: No Exam Narrative: Exam Narrative: General: well nourished , NAD Head: Atraumatic and normocephalic ENT: External ears and external nose are normal Eyes: Conjunctiva clear, pupils are equal reactive, external ocular motions are intact Neck: Full spontaneous range of motion of the neck Lungs: No respiratory distress, trace inspiratory wheezes Musculoskeletal: No tenderness or deformity Neurologic: No gross focal neurologic deficits Skin: No rash, no hives, diffuse excoriations and areas that look like they have been picked Psych: Mood and affect are appropriate Course Course ED Course: Reviewed prior visit from June 2024 which was for hives, treated with antihis tamines steroid Patient presents today with itching all over body. Unknown source, she thought it could be from poison cecilia but no specific known contact. No new soaps, lotions, detergents. No breathing or swallowing difficulty, will defer tongue swelling. No hives or definite rash seen although she does have areas of excoriation. Patient will be given Benadryl in the emergency department and started on prednisone burst and taper, also recommend Zyrtec, stable for discharge with outpatient follow-up. Discharge Plan Discharge Clinical Impression: Itching with irritation, Eczema Patient Disposition: Home, Self-Care Instructions: Itchy Skin (ED), Dermatitis (ED) Additional Instructions: Take Benadryl 50 mg every 6 hours Start taking Zyrtec 10 mg daily for the next 10 days Take prednisone as prescribed Activity Level: Activity as Tolerated Discharge Diet: Regular Prescriptions: No Action clobetasol 0.05 % ointment 1 applic topical QDAY Qty: 30 0RF Rx Instructions: Daily at bedtime for 2 weeks, then 3x weekly at bedtime. buspirone 5 mg tablet 5 mg PO BID ketorolac 10 mg tablet 10 mg PO Q8H 5 Days Qty: 15 0RF hydroxyzine HCl 25 mg tablet 25 mg PO TID PRNQty: 20 0RF cetirizine [Zyrtec] 10 mg tablet 10 mg PO DAILY PRN (Reason: allergy symptoms) Qty: 7 0RF prednisone 20 mg tablet 40 mg PO DAILY Qty: 10 0RF Follow Up/Referrals: Machelle Villarreal MD [Primary Care Provider, Family Practice] Stand Alone Forms: [employer] Info Instructions
[2025-05-29 03:04] VITALS: BP 120/78; PULSE 74; RESP 18; TEMP 36.9; O2SAT 99; BMI 32.9
[2025-05-29 03:14] VITALS: BP 120/78; PULSE 74; RESP 18; TEMP 36.9; O2SAT 99
[2025-05-29 03:15] VITALS: BP 120/78; PULSE 74; RESP 18; TEMP 36.9
--- OUTSIDE RECORDS SUMMARY | 2025-05-29 03:18 | XMS_ITS | Clinical Summary ---
Author Organization [facility] Address [address] [place] [address] Care Team Providers Care Measurement Operator Name Role Phone Indu Galvan DO Primary Care Provider [phone] Allergies Active Allergy Reactions Criticality Noted Date [...] 40 mg tabletIndicatio ns:Coronary artery disease involving [place] coronary artery of [place] heart without angina pectoris Take 1 Tablet (40 mg) by mouth at bedtime. 90 Tablet 1 5 Active aspirin (ECOTRIN) 81 mg enteric coated tabletIndicatio ns:Coronary artery disease involving [place] coronary artery of [place] heart without angina pectoris Take 1 Tablet (81 mg) by mouth once daily with a meal. 100 Tablet 2 5 Active citalopram 10 mg tabletIndicatio ns:Anxiety and depression Take 1 Tablet (10 mg) by mouth once daily in the morning. 30 Tablet 1 5 Active Active Problems Problem Noted Date Diagnosed Date Lung nodule 12/10/2024 Overview (12/10/2024): 12/10/2024: Lung RAD4B with new 6.2 mm nodule within the RIGHT upper lobe. Stable 5.7 mm LEFT lower lobe nodule. Coronary artery disease invo lving [place] coronary artery of [place] heart without angina pectoris 11/30/2024 Cervical radiculopathy [...] Overview (02/03/2017): no longer living in the shelter. meth use last week 01/2017 Anxiety state, [...] Encounters Date Type Department Care Team Description 03/29/2025 Travel 03/26/2025 2:20 PM CDT Office Visit [facility] [address] [place] [address] Klaus Mast MD Form (Needs medical opinion form filled out for social security/disability services through the state//Related to: Mental health illness); Immunization/Injectio n 03/26/2025 Travel 03/21/2025 Telephone [facility] [address] [place] [address] Indu Galvan, DO Questions 03/19/2025 Telephone [facility] [address] [place] [address] Indu Galvan, DO Error-please disregard (err) 03/13/2025 Telephone [facility] [address] [place] [address] Indu Galvan, DO Form 02/27/2025 Telephone [facility] [address] [place], [place] [address] [place] [phone] Maxx Salazar MD from Last 3 Months Immunizations Immunization Administration Dates Next Due COVID-19 VACCINE SPIKEVAX (M ODERNA 50MCG/0.5ML) 12YO+ PFS 03/26/2025,09/30/2023 COVID-19 vaccine (Pfizer-Bio NTech 30mcg/0.3mL) 12YO+ BIVALENT [...] History Relation Name Comments Heart Disease Father [place] Lung cancer Father Lung Parkinsonism Maternal Grandfather [...] Date Smoking Tobacco: Every Day Cigarettes 1 35.5 Started: 1989 Smokeless Tobacco: Never Tobacco Cessation:Ready to Q uit: Yes; Counseling Given: No Alcohol Use Standard Drinks/Week Comments Not Currently 0 (1 standard drink = 0.6 oz pur e alcohol) PHQ-2 Answer Date Recorded PHQ-2 TOTAL SCORE 4 03/26/2025 Social Connections Answer Date Recorded Do you [...] on file Legal Sex Female 5:25 AM HR ADMINISTRATIVE ASSISTANT Gender Identity Not on file Sexual Orientation [...] Sign Reading Time Taken Comments Blood Pressure 125/80 03/26/2025 2:32 PM CDT Pulse 88 03/26/2025 2:32 PM CDT Temperature 36.4 C (97.6 F) 03/26/2025 2:32 PM CDT Respiratory Rate 16 12/19/2024 10:06 AM HR ADMINISTRATIVE ASSISTANT Oxygen Saturation 95% 03/26/2025 2:32 PM CDT Inhaled Oxygen Concentration - - Weight 86.9 kg (191 lb 9.6 oz) 03/26/2025 2:32 PM CDT Height 152.4 cm (5') 03/26/2025 2:32 PM CDT Body Mass Index 37.42 03/26/2025 2:32 PM CDT Plan of Treatment Health Maintenance Due Date Last Done Comments Hepatitis B series for 19+ ( 1 of 3 - 19+ 3-dose series) 1985 Mammogram for age 45-75 12/06/2024 12/06/19 24, 09/22/2022, 01/15/2020, Additional history exists Low Dose CT (for lung CA) ag e 50-80 02/26/2026 02/26/2025, 12/07/2024, 07/07/2022, Additional history exists BMI (ht and wt on same day) for age 18+ 03/26/2026 03/26/2025, 03/08/2023, 09/28/2022, Additional history exists Depression screening for age 12+ 03/29/2026 03/29/2025, 03/26/2025, 11/04/2023, Additional history exists Pap test for age 21-65 06/23/2027 , 06/23/2022, 03/15/2014, Additional history exists Colonoscopy through age 75 07/21/202707/21 (Verified in Care Everywhere or Patient Record) Lipids for age 45-75 10/04/2029 10/04/2024, 06/23/2022, 09/15/2012 Tetanus booster 06/23/2032 06/23/2022, 1205/2011, 11/03/2011 (Completed outside of [facility]), Additional history exists (IA) Tdap Completed 06/23/2022, 11/03/2011 Zoster (shingles) series for age 50+ Completed 06/23/2022, 08/02/2018 HIV for age 15-65 Completed 02/17/2023, 10/10/2013 Hepatitis C screening for ag e 18-79 Completed 02/17/2023, 10/10/2013 Pneumococcal series for age 50+ Completed , 05/25/2017 Influenza Vaccine Completed 12/06/2024, , 08/12/2022, Additional history exists COVID-19 vaccine series Completed 03/26/20 25, 09/30/2023, 08/12/2022, Additional history exists Procedures Procedure Name Priority Date/Time Associated Diagnosis Comments CT CHEST WO Routine 02/26/2025 10:40 AM CDT Lung nodule LIPID PANEL W REFLEX MEASURED LDL Routine 10/04/2024 4:46 PM HR ADMINISTRATIVE ASSISTANT Hyperlipidemia, unspecified hyperlipidemia type XR MAMMO JOSSIE BILAT DIAG Routine 12/06/2023 2:46 PM HR ADMINISTRATIVE ASSISTANT Mass of upper inner quadrant of right [...] Relevant to Health Maintenance Results * CT CHEST WO (02/26/2025 10:40 AM CDT) Anatomical Region Laterality Modality CHEST, THORAX, HEART Computed To mography 02/27/2025 2:33 PM CDT Narrative 02/27/2025 2:33 PM CDT For Patients: As a result of the Cures Act, medical imaging exams and procedure reports are released immediately into your electronic medical record. You may view this report before your referring provider. If you have questions, please contact your health care provider. Indication: Lung nodule Technique: Noncontrast CT chest Please note that all CT scans at this facility use dose modulation, iterative reconstruction, and/or weight-based dosing when appropriate to reduce radiation dose to as low as reasonably achievable. Comparison: 12/07/2024 Findings: Stable nodule right upper lobe measuring 6 millimeters and stable nodule left lower lobe measuring 5 millimeters. Stable scarring within the anterior left lung. Emphysema noted. No pleural effusion. A couple scattered 2 millimeter or less nodules are present elsewhere bilaterally. Upper abdomen is unremarkable. No adenopathy. No fracture. Impression: Stable bilateral pulmonary nodules. One year follow-up recommended. Please note that all CT scans at this facility use dose modulation, iterative reconstruction, and/or weight-based dosing when appropriate to reduce radiation dose to as low as reasonably achievable. Dictated by Abrahan Armando MD @ 02/27/2025 2:33:33 PM (Electronically Signed) Procedure Note Abrahan Armando MD - 02/27/2025 For Patients: As a result of the Cures Act, medical imagingexams and procedure reports are released immediately into your electronicmedical record. You may view this report before your referring provider.If you have questions, please contact your health care provider. Indication: Lung nodule Technique: Noncontrast CT chest Please note that all CT scans at this facility use dose modulation,iterative reconstruction, and/or weight-based dosing when appropriate toreduce radiation dose to as low as reasonably achievable. Comparison: 12/07/2024 Findings: Stable nodule right upper lobe measuring 6 millimeters and stable noduleleft lower lobe measuring 5 millimeters. Stable scarring within theanterior left lung. Emphysema noted. No pleural effusion. A couplescattered 2 millimeter or less nodules are present elsewhere bilaterally.Upper abdomen is unremarkable. No adenopathy. No fracture. Impression: Stable bilateral pulmonary nodules. One year follow-up recommended. Please note that all CT scans at this facility use dose modulation,iterative reconstruction, and/or weight-based dosing when appropriate toreduce radiation dose to as low as reasonably achievable. Dictated by Abrahan Armando MD @ 02/27/2025 2:33:33 PM (Electronically Signed) us Maxx Salazar MD CT Final Res ult * (ABNORMAL) LIPID PANEL W REFLEX MEASURED LDL (10/04/2024 4:46 PM HR ADMINISTRATIVE ASSISTANT) CHOLESTEROL, TOTAL 210(H) <200 mg/dL [facility] HDL CHOLESTEROL 54 > OR = 50 mg/dL [facility] TRIGLYCERIDES 255(H) <150 mg/dL [facility] Comment: If a non-fasting specimen was collected, consider repeat triglyceride testing on a fasting specimen if clinically indicated. Mayo et al. J. of Clin. Lipidol. 2015;9:129-169. LDL-CHOLESTEROL 120(H) mg/dL (calc) [facility] Comment: Reference range: <100 Desirable range <100 mg/dL for primary prevention; <70 mg/dL for patients with CHD or diabetic patients with > or = 2 CHD risk factors. LDL-C is now calculated using the Casper-Beatriz calculation, which is a validated novel method providing better accuracy than the Friedewald equation in the estimation of LDL-C. Casper GRAY et al. EMILIO. 2013;310(19): 5246-9836 (http://education.Tenrox.EnergyUSA Propane/faq/TXP611) CHOL/HDLC RATIO 3.9 <5.0 (calc) [facility] NON HDL CHOLESTEROL 156(H) <130 mg/dL (calc) [facility] Comment: For patients with diabetes plus 1 major ASCVD risk factor, treating to a non-HDL-C goal of <100 mg/dL (LDL-C of <70 mg/dL) is considered a therapeutic option. Blood BLOOD SPECIMEN / Unknown 10/04/2024 4:46 PM HR ADMINISTRATIVE ASSISTANT 10/04/2024 4:46 PM HR ADMINISTRATIVE ASSISTANT Indu Galvan DO CHEMISTRY Final Resu lt [employer] [facility] [address] [place] [address], [facility] [address] [place] [address] * XR MAMMO JOSSIE BILAT DIAG (12/06/2023 2:46 PM HR ADMINISTRATIVE ASSISTANT) Anatomical Region Laterality Modality BREASTS, Breast Left, Breast Right Bilateral Mammography Impressions 12/07/2023 9:00 AM HR ADMINISTRATIVE ASSISTANT Questionable skin lesion or subcutaneous lesion upper [...] your referring provider. Narrative 12/07/2023 9:00 AM HR ADMINISTRATIVE ASSISTANT As a result of the 21st Century Cures Act, medical imaging exams and [...] QUANT PCR (02/17/2023 9:13 AM CDT) Pathologist [facility] HCV Ab Non Reactive Non Reactive 02/19/2023 12:07 PM CDT [facility] ([facility]) Blood BLOOD SPECIMEN / Unknown Venipuncture / Unknown 02/17/2023 9:13 AM CDT 02/17/2023 9:15 AM CDT Narrative [facility] ([facility]) - 02/19/2023 12:07 PM CDT Performed at: [address] [place] [id number] [place]: Christopher Manuel MD, Phone: [phone] us Alex Lee MD LABORATORY Final Res ult [facility] ([facility]) [address] [place] [id number], [place] * LC HIV-1/O/2, 4TH GENERATION (02/17/2023 9:13 AM CDT) Pathologist [facility] HIV Scr 4th Gen Non Reactive Non Reactive 02/19/2023 11:08 AM CDT [facility] ([facility] Comment: HIV Negative HIV-1/HIV-2 antibodies and HIV-1 p24 antigen were NOT detected. There is no laboratory evidence of HIV infection. Blood BLOOD SPECIMEN / Unknown Venipuncture / Unknown 02/17/2023 9:13 AM CDT 02/17/2023 9:15 AM CDT Narrative [facility] ([facility]) - 02/19/2023 11:08 AM CDT Performed at: [address] [id number] [place]: Christopher Manuel MD, Phone: [phone] us Alex Lee MD LABORATORY Final Res ult [facility] ([facility]) [address] [place] [id number], * HPV HIGH RISK (06/23/2022 9:28 AM CDT) [facility] TYPE 16 Negative Negative 06/25/2022 2:40 PM CDT [facility] TYPE 18 Negative Negative 06/25/2022 2:40 PM CDT [facility] OTHER HIGH RISK TYPES Negative Negative 06/25/2022 2:40 PM CDT [facility] Other (Cervical) Non-Blood / Unknown 06/23/2022 9:28 AM CDT 06/23/2022 4:54 PM CDT Narrative [facility] - 06/25/2022 2:40 PM CDT HPV types 16, 18, 31, 33, 35, 39, 45, 51, 52, 56, 58, 59, 66 and 68 DNA were undetectable or below the pre-set threshold. Methodology: Annette Maikel 4800 HPV Test us [employer]oz [facility] [employer] Final Resu lt [facility] [address] [place] [address], [place] from Last 3 Months or Most Recently Relevant to Health Maintenance Insurance MEDICAID MEDICAID [facility] Advance Directives * Full Code (Latest Code Status on File) Date Activated Date Inactivated Comments 10/08/2011 7:20 PM 10/09/2011 12:41 PM Care Teams Measurement Operator Relationship Specialty Start Date End [place] [address] PCP - General Family Practice 10/07/23
== END 2025-05-29 03:18 | disposition home or self-care (01) ==
LOC: ED 03:16
PROVIDERS: Emergency Provider Family Medicine; PCP Family Medicine
DX: L30.9 Dermatitis, unspecified (principal); L29.9 Pruritus, unspecified
CPT/HCPCS: 99283; A9270